=== PATIENT | male | born 1970 | race Caucasian/White ===

== ENCOUNTER 2020-05-02 14:52 | Emergency (ER) | payer OTHER, SELFPAY ==
[2020-05-02] VITALS (11 sets, daily range): BP systolic 109–180; BP diastolic 63–102; PULSE 60–74; RESP 10–23; O2SAT 89–100
[2020-05-02 15:53] LABS: Basophils Percent Auto 0.4 % (0.2-1.2); Eosinophils Absolute Auto 0.2 K/mm3 (0-0.3); Eosinophils Percent Auto 1.5 % (0-4.4); Hematocrit 42.8 % (42.0-52.0); Hemoglobin 14.5 g/dL (14.0-18.0); Immature Granulocyte Absolute 0.06 K/mm3 (0.00-0.031); Immature Granulocyte Percent A 0.6 % (0-0.5); Lymphocytes Absolute Auto 2.17 K/mm3 (0.9-3.2); Mean Corpuscular HGB Conc 33.9 g/dl (32-36); Mean Corpuscular Hemoglobin 29.7 pg (26-34); Mean Corpuscular Volume 87.7 fl (80-100); Mean Platelet Volume 10.4 fl (7.4-10.4); Monocytes Absolute Auto 0.9 K/mm3 (0.1-0.6); Monocytes Percent Auto 8.5 % (2.6-8.5); Platelet Count Result 268 k/mm3 (150-375); Red Blood Count 4.88 M/mm3 (4.6-6.20); Red Cell Distribution Width 13.4 % (11.5-14.5); White Blood Count 10.3 K/mm3 (4.5-10.0)
[2020-05-02 15:58] LABS: Alanine Aminotransferase 47 U/L (4-50); Albumin Level 4.3 g/dL (3.5-5.1); Alkaline Phosphatase 94 U/L (38-126); Anion Gap 7 mmol/L (8-16); Aspartate Amino Transferase 36 U/L (17-59); Bilirubin,Total 0.3 mg/dL (0.2-1.3); Blood Urea Nitrogen 19 mg/dL (9-20); Calcium 8.8 mg/dL (8.4-10.2); Carbon Dioxide 26 mmol/L (22-30); Chloride 104 mmol/L (98-107); Estimated CRCL calculation 95 ml/min; Estimated Glomerular Filt Rate > 60; Glucose 94 mg/dL (75-110); Lipase 142 U/L (23-300); Potassium 3.9 mmol/L (3.4-5.0); Sodium 137 mmol/L (137-145)
[2020-05-02] MEDS: BELLADONNA ALK/PHENOB ELIX 10 ML, MAG HYDROX/ALUMINUM HYD/SIMETH 30 ML, LIDOCAINE HCL 2... PO (15:58)
[2020-05-02] MEDS: PANTOPRAZOLE SODIUM IV 40 MG VIAL IV PUSH (15:59)
--- NOTE | 2020-05-02 16:29 | ED.ABDPAIN ---
HPI - Abdominal Pain General Chief Complaint: Abdominal Pain Stated Complaint: UPPER ABD PAIN Time Seen by Provider: 05/02/20 14:56 Source: patient Mode of arrival: ambulatory Limitations: no limitations History of Present Illness HPI narrative: Patient presents with chief complaint of epigastric discomfort that began a few hours prior to arrival after taking prednisone for a shoulder injury. Patient states that he began having burning and cramping-like sensations to his epigastric area accompanied by some nausea. Patient denies vomiting, diarrhea, fever, chills, cough, shortness of breath or chest pain. patient denies alcohol intake or previous episodes of pancreatitis, gallbladder disease, or epigastric issues. Patient reports that he is appendix has been removed many years ago. He denies any other concerns or complaints. Related Data Allergies Allergy/AdvReac Type Severity Reaction Status Date / Time No Known Allergies Allergy Verified 05/02/20 15:00 Review of Systems Review of Systems: Narrative: CONSTITUTIONAL: Denies fever, chills, or sweats. EYES: Denies visual changes, redness, or discharge. ENT: Denies rhinorrhea, congestion, sore throat, or otalgia. CARDIOVASCULAR: Denies chest pain, palpitations, or edema. RESPIRATORY: Denies cough or dyspnea. GASTROINTESTINAL: Reports abdominal pain, denies nausea, vomiting, or diarrhea. GENITOURINARY: Denies dysuria or hematuria. SKIN: Denies rash or itching. MUSCULOSKELETAL: Denies back pain, myalgia, or joint pain NEUROLOGIC: Denies headache, numbness, dizziness, or weakness. PSYCHIATRIC: Denies anxiety or depression. [facility] Family History Family History (Updated 03/08/16 @ 23:19 by DOCTOR UNKNOWN) Mother Family history of diabetes mellitus in first degree relative Social History Social History Smoking status: Former smoker Alcohol intake: never Gender identity (if verbalized by the patient): Male Exam Narrative: Exam Narrative: GENERAL: Well-appearing, well-nourished. HEAD: Normocephalic, atraumatic. EYES: PERRLA and EOMI. ENT: Nares clear, no rhinorrhea or epistaxis. Mucous membranes moist. NECK: Supple. No adenopathy or masses. No vertebral tenderness or loss of ROM. CHEST: Clear to auscultation. No respiratory distress. No wheezes rales or rhonchi HEART: Regular rate and rhythm. Normal peripheral pulses. ABDOMEN: Soft, mildly tender epigastrically with deep palpation, nondistended, normal active bowel sounds. No bruises noted. EXTREMITIES: No acute changes in ROM. No edema. SKIN: Warm, dry, no rash. NEURO: No focal deficits. Alert and oriented x3. PSYCH: Normal mood and affect. Course Vital Signs Vital signs: Vital Signs Pulse Rate 60 05/02/20 14:54 Respiratory Rate 16 05/02/20 14:54 Blood Pressure 180/93 H 05/02/20 14:54 Pulse Oximetry 99 05/02/20 14:54 Pulse Rate 60 05/02/20 14:54 Respiratory Rate 16 05/02/20 14:54 Blood Pressure 180/93 H 05/02/20 14:54 Pulse Oximetry 99 05/02/20 14:54 MDM - Abdominal Pain MDM Narrative Medical decision making narrative: Patient reports full resolution in his symptoms with Protonix and GI cocktail. Patient's labs and vitals are stable. Patient instructed to take prednisone with food to help coat his stomach. Patient will be prescribed omeprazole for a few days. Patient instructed to follow-up with his provider to discuss if prednisone continues to discuss alternative treatment if it continues to irritate his stomach. Differential Diagnosis Differential diagnosis: Likely abdominal pain, acute appendicitis, diverticulitis, gastroenteritis, pancreatitis and small bowel obstruction Lab Data Result diagrams: 05/02/20 15:33 05/02/20 15:33 Labs: Lab Results 05/02/20 05/02/20 Range/Units 15:33 15:33 WBC 10.3 H (4.5-10.0) K/mm3 RBC 4.88 (4.6-6.20) M/mm3 Hgb 14.5 (14.0-18.0) g/dL Hct 42.8 (42.0-52.0) % MCV 87.7 (80-1
--- NOTE | 2020-05-02 16:30 | PC.NURSE ---
pt denies any pain. states gi cocktail worked amazing
== END 2020-05-02 17:02 | disposition home or self-care (01) ==
PROVIDERS: Physician Assistant; Emergency Provider Emergency Medicine
DX: R10.13 Epigastric pain (principal); Z87.891 Personal history of nicotine dependence
CPT/HCPCS: 36415; 80053; 83690; 85025; 96374; 99284; A9270; C9113

== ENCOUNTER 2020-05-13 23:52 | Inpatient (IN) | payer OTHER, SELFPAY ==
--- NOTE | ~2020-05-13 | CT_ITS ---
EXAMINATION: CT abdomen pelvis w con EXAM DATE: 05/14/2020 00:52 INDICATION: Upper abdominal pain. TECHNIQUE: Spiral CT of the abdomen and pelvis was performed following intravenous injection of 100 m L Omnipaque 350. Axial, coronal and sagittal images were reviewed. The dose-length product (DLP) fo r this examination was 764.88 mGy-cm. The exposure was tailored according to patient size (auto mA e xposure control), and iterative reconstruction (ASIR) was used as additional dose reduction technique . There is no prior study for comparison. FINDINGS: The liver, spleen, adrenal glands and pancreas are unremarkable. Gallbladder is moderately distended with indistinct wall, appearance is suspicious for acute cholecystitis. No calcified galls tones but please note that approximately 30% of gallstones are noncalcified. Portal and splenic vein s are patent. Kidneys enhance symmetrically. There is no hydronephrosis. The prostate is unremark able. The bladder is unremarkable. There is no retroperitoneal or pelvic lymphadenopathy. There i s mild scattered arteriosclerotic disease. Small umbilical fat-containing hernia. Small bilateral ing uinal fat-containing hernias. The appendix is not positively visualized. There is no pericecal inflammatory change to suggest appe ndicitis. There is mild scattered colonic diverticulosis. There is no adjacent inflammatory change t o suggest diverticulitis. The stomach and small bowel are unremarkable. There is expected amount of colonic stool. No free intraperitoneal gas. The heart is normal in size. There are no pericardia l or pleural effusions. The lung bases are unremarkable. There are no osteoblastic or osteolytic le sions identified. IMPRESSION: 1. Findings consistent with acute cholecystitis. Reviewed, dictated and finalized at location A.
--- NOTE | ~2020-05-13 | US_ITS ---
EXAMINATION: US right upper quadrant DATE: 05/15/2020 08:56 INDICATION: Acute cholecystitis on prior CT. TECHNIQUE: Multiple grayscale and Doppler ultrasound images of the abdomen were obtained. COMPARISON: CT dated 05/14/2020 FINDINGS: Visualized portion of the body of the pancreas is normal. The head and tail are nonvisualized. Liver has normal echogenicity and contour, with a smooth surface. No liver lesion identified. No intrahepat ic biliary duct dilation suspected. Portal venous flow was seen in the hepatopetal, normal direction and has normal Doppler waveform. Sludge and shadowing gallstones are present within the gallbladder w hich is dilated with wall thickening. Sonographic Mckeon sign was reported as positive by the sonogra pher.The common bile duct is dilated to 8-9 mm which appears new since the prior CT. The distal commo n bile duct is obscured. The visualized proximal inferior vena cava is normal. Visualized portion of the right kidney demonstrates normal echogenicity and no hydronephrosis. IMPRESSION: 1. Cholelithiasis and acute cholecystitis. 2. Common bile duct dilated to 8-9 mm which appears new since the prior CT. Reviewed, dictated and finalized at location A.
[2020-05-14] VITALS (8 sets, daily range): BP systolic 128–180; BP diastolic 77–114; PULSE 52–93; RESP 16–23; TEMP 36.1–37.7; O2SAT 94–100; BMI 26.9
--- NOTE | 2020-05-14 00:04 | ED.ABDPAIN ---
HPI - Abdominal Pain General Chief Complaint: Abdominal Pain Stated Complaint: abd pain, n/v Time Seen by Provider: 05/13/20 23:56 Source: patient Mode of arrival: ambulatory Limitations: no limitations History of Present Illness HPI narrative: This patient is a 50 year old male who presents for evaluation of epigastric abdominal pain. He states he developed similar pain 2 weeks ago. He came to the ER for evaluation and it was thought to be due to taking medication with out eating. He was taken off the medication and started on a PPI for 7 days. He states his pain resolved but it return the morning. He states this morning his pain was mild but it has gradually worsened throughout the day. Tonight he developed nausea and vomiting. He describes the pain as if his stomach will explode. He reports a normal bowel movement today. Related Data Home Medications Medication Instructions Recorded Confirmed nabumetone 500 mg PO Q12H 05/14/20 05/14/20 tizanidine 8 mg PO HS 05/14/20 05/14/20 Allergies Allergy/AdvReac Type Severity Reaction Status Date / Time No Known Allergies Allergy Verified 05/02/20 15:00 Review of Systems Review of Systems: All systems reviewed & are unremarkable except as noted in HPI and below Constitutional: Constitutional: Denies chills and Denies fever(s) Gastrointestinal: Gastrointestinal: Reports abdominal pain, Denies diarrhea, Reports nausea and Reports vomiting PMFSH Past Medical History Medical History (Updated 05/14/20 @ 02:19 by Martha Bourgeois MD) Patient denies medical problems Surgical History Surgical History (Updated 05/14/20 @ 00:06 by Martha Bourgeois MD) Hx of appendectomy Social History Social History Smoking status: Current every day smoker Tobacco type: cigars Additional smoking assessment comments: 1 cigar a day Alcohol intake: never Substance use: unknown Substance use type: does not use Gender identity (if verbalized by the patient): Male Spiritual care concerns: No Exam Const: General: alert Orientation/consciousness: patient oriented x3 HENMT: Face and sinus: face symmetric Throat: posterior oropharynx normal Eyes: EOM: EOMs intact bilaterally Chest: Chest palpation & inspection: normal inspection of the chest Resp: Effort & Inspection: normal respiratory effort and no retractions Auscultation: clear to auscultation bilaterally Cardio: Rate: regular rate Rhythm: regular rhythm Heart sounds: no murmurs GI: GI Palp: Yes Soft to palpation, Yes Tenderness to palpation present (GI) (epigastric), No Guarding due to palpation present (GI), No Rigid due to palpation and No Hernia present Skin: General skin exam: normal color Rashes: no rashes Neuro: General: patient oriented x3 and moves all extremities Psych: Mental Status: mental status grossly normal Affect: normal affect Course Reevaluation(s) Reevaluation #1: Patient initially had improvement of pain with GI cocktail. He reports severe pain again so he was given Dilaudid. I have discussed that his pain appears due to cholecystitis. Date: 05/14/20 Time: 01:51 Consultations Consultation #1: I have discussed case with DR. Singh who accepts patient to his service with antibiotics, IVF and pain medication. Date: 05/14/20 Time: 02:18 Vital Signs Vital signs: Vital Signs Temperature 97.1 F L 05/14/20 00:16 Pulse Rate 60 05/14/20 00:16 Respiratory Rate 16 05/14/20 00:16 Blood Pressure 166/114 H 05/14/20 00:16 Pulse Oximetry 98 05/14/20 00:16 Temperature 97 F L 05/14/20 03:48 Pulse Rate 65 05/14/20 03:48 Respiratory Rate 20 05/14/20 03:48 Blood Pressure 153/83 H 05/14/20 03:48 Pulse Oximetry 97 05/14/20 03:48 MDM - Abdominal Pain Lab Data Attestation: I reviewed the patient's lab results. Result diagrams: 05/14/20 00:09 05/14/20 00:09 Labs: Lab Results 05/14/20 05/14/20 05/14/20 Range/Units
[2020-05-14 00:15] LABS: Basophils Absolute Auto 0.1 K/mm3 (0.0-0.1); Basophils Percent Auto 0.4 % (0.2-1.2); Eosinophils Absolute Auto 0.4 K/mm3 (0-0.3); Eosinophils Percent Auto 2.6 % (0-4.4); Hematocrit 41.8 % (42.0-52.0); Hemoglobin 14.5 g/dL (14.0-18.0); Immature Granulocyte Absolute 0.05 K/mm3 (0.00-0.031); Immature Granulocyte Percent A 0.4 % (0-0.5); Lymphocytes Absolute Auto 2.45 K/mm3 (0.9-3.2); Lymphocytes Percent Auto 17.3 % (18.3-44.2); Mean Corpuscular HGB Conc 34.7 g/dl (32-36); Mean Corpuscular Hemoglobin 29.8 pg (26-34); Mean Platelet Volume 10.5 fl (7.4-10.4); Monocytes Percent Auto 7.1 % (2.6-8.5); Neutrophils Absolute Auto 10.3 K/mm3 (1.3-6.7); Neutrophils Percent Auto 72.2 % (45.5-73.1); Platelet Count Result 282 k/mm3 (150-375); Red Blood Count 4.86 M/mm3 (4.6-6.20); Red Cell Distribution Width 13.4 % (11.5-14.5); White Blood Count 14.2 K/mm3 (4.5-10.0)
[2020-05-14] MEDS: ONDANSETRON INJ 4 MG/2 ML VIAL IV PUSH ×3 (00:24→16:28)
[2020-05-14] MEDS: PANTOPRAZOLE SODIUM IV 40 MG VIAL IV PUSH (00:24)
[2020-05-14] MEDS: BELLADONNA ALK/PHENOB ELIX 10 ML, MAG HYDROX/ALUMINUM HYD/SIMETH 30 ML, LIDOCAINE HCL 2... PO (00:24)
[2020-05-14 00:29] LABS: Alanine Aminotransferase 30 U/L (4-50); Albumin Level 4.1 g/dL (3.5-5.1); Alkaline Phosphatase 126 U/L (38-126); Anion Gap 9 mmol/L (8-16); Aspartate Amino Transferase 17 U/L (17-59); Bilirubin,Total 0.4 mg/dL (0.2-1.3); Blood Urea Nitrogen 15 mg/dL (9-20); Calcium 9.4 mg/dL (8.4-10.2); Carbon Dioxide 27 mmol/L (22-30); Chloride 104 mmol/L (98-107); Estimated CRCL calculation 94 ml/min; Estimated Glomerular Filt Rate > 60; Glucose 135 mg/dL (75-110); Lipase 119 U/L (23-300); Potassium 3.5 mmol/L (3.4-5.0); Sodium 140 mmol/L (137-145)
[2020-05-14] MEDS: HYDROmorphone HCL INJ (*CRX) 1 MG/ML SYR IV PUSH (01:43)
[2020-05-14 01:59] LABS: Add Urine Microscopic? NO; Appearance Urine Clear (Clear); Bilirubin Urine Negative (Negative); Blood Urine Negative (Negative); Color Urine Yellow (Yellow); Glucose Urine UA Negative (Negative); Ketones Urine Negative (Negative); Leukocyte Esterase Ur Negative LEU/UL (Negative); Nitrate Urine Negative (Negative); Protein Urine Negative (Negative); Urobilinogen Urine Negative mg/dL (<2.0)
[2020-05-14 02:13] LABS: Specific Grav Ur > 1.060 (1.001-1.035)
--- NOTE | 2020-05-14 03:31 | ADMGEN ---
This patient, Nathan Avila, was admitted to 2 Medical Room 260-01 at 0325. Patient/family oriented to hospital policies and general routines including ID bracelet, bed and alarms, visiting hours, pain management, procedures, bathroom and other care routines, personal items, smoking policy, room service/diet, and visiting hours. Valuables list has been completed. Information on how to activate the Rapid Response Team has been discussed. Patient/Family are encouraged to report perceived risks to care and to ask questions if they do not understand what they are told or what they should do.
[2020-05-14] MEDS: SODIUM CHLORIDE 0.9% IV 1,000 ML 125 ML IV CONT (03:45)
[2020-05-14] MEDS: HYDROmorphone HCL INJ (*CRX) 1 MG/ML SYR 0.5 MG IV PUSH ×2 (06:36→10:46)
[2020-05-14] MEDS: MORPHINE SULFATE (*CRX) 4 MG/ML INJ IV PUSH ×4 (11:30→20:43)
--- NOTE | 2020-05-14 12:32 | PM.IMHP ---
H&P: HPI History of Present Illness Date/Time: 05/14/20 12:32 Chief complaint: Acute Cholecystitis Narrative: Nathan Avila is a 50 year old male Patient reports that about 2 weeks ago he had symptoms similar to this that was felt to be a complication of a steroid therapy. This was treated but the pain never really went away. The pain is in the epigastric area and goes like a band around the upper abdomen. Last night about 8 or 9:00 a.m. the pain got worse. By it was extremely severe. He reports having eaten chicken legs, macaroni and cheese and rice for dinner. He came to the emergency room where he was noted to be very uncomfortable with upper abdominal pain. He was tender in the epigastric [place] [id number] scan of the abdomen and pelvis was done and was suspicious for cholecystitis. No stones were seen but but acute cholecystitis was suspected. He has been admitted now and started on IV Zosyn antibiotics. He reports he has been taking analgesics but still is having a lot of epigastric abdominal pain as described above. He has never had pain like this before 2 weeks ago. It was never as bad as it was starting last night. He has no family history of gallbladder disease. 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 He also has a history of chronic sinusitis and chronic daily headaches. He has seen a neurologist at [facility] for this at least a couple of times. Review of Systems Review of Systems: All systems reviewed & are unremarkable except as noted in HPI and below ( HPI and those items noted below) ENT: Reports other ( chronic sinusitis, headaches) Neurologic: Reports headache(s) ( chronic headaches of unclear etiology) [facility] Past Medical History Medical History Patient denies medical problems Surgical History Surgical History Hx of appendectomy Family History Family History Mother Family history of diabetes mellitus in first degree relative Social History Social History Smoking status: Current every day smoker Tobacco type: cigars Additional smoking assessment comments: 1 cigar a day Alcohol intake: never Substance use: unknown Substance use type: does not use Living arrangements: with family Occupation/Education: occupation 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 Gender identity (if verbalized by the patient): Male Sexual Orientation (if Verbalized by the Patient): Straight or Heterosexual Spiritual care concerns: No Meds Home Medications and Allergies Home Medications Medication Instructions Recorded Confirmed Type nabumetone 500 mg PO Q12H 05/14/20 05/14/20 History tizanidine 8 mg PO HS 05/14/20 05/14/20 History Allergies Allergy/AdvReac Type Severity Reaction Status Date / Time No Known Allergies Allergy Verified 05/02/20 15:00 Vital Signs Vital Signs - 24 hr 05/14/20 00:16 05/14/20 00:56 05/14/20 02:01 Temperature 36.2 C L 36.6 C Pulse Rate 60 57 L 57 L Respiratory Rate 16 18 23 H Blood Pressure 166/114 H 180/95 H 146/98 H Pulse Oximetry 98 100 100 05/14/20 02:31 05/14/20 03:48 Temperature 36.1 C L Pulse Rate 52 L 65 Respiratory Rate 22 H 20 Blood Pressure 156/95 H 153/83 H Pulse Oximetry 99 97 Exam Const: General: cooperative, healthy appearing, no acute distress, alert, awake, anxious and uncomfortable ( due to epigastric abdominal pain); No confusion Nutritional Appearance: average body habitus and well nourished Orientation/consciousness: patient oriented x3 and No confusion Limitations: no limitations HENMT: Head: normocephalic, atraumatic, no contusi
[2020-05-14] MEDS: IBUPROFEN IV 800 MG/200 ML 800 MG/200 ML BAG 400 MG IVPB ×2 (13:18→19:38)
[2020-05-14] MEDS: KCL 40 MEQ/D5/0.9% SOD CHL 1,000 ML 80 ML IV CONT (14:08)
[2020-05-14] MEDS: ENOXAPARIN 30 MG/0.3 ML SYRINGE SUB-Q ×2 (14:09→20:48)
[2020-05-14] MEDS: TIZANIDINE HCL 4 MG TABLET 8 MG PO (20:48)
[2020-05-15] VITALS (10 sets, daily range): BP systolic 100–127; BP diastolic 60–81; PULSE 74–101; RESP 18–20; TEMP 36.6–37.2; O2SAT 94–98
[2020-05-15] MEDS: MORPHINE SULFATE (*CRX) 4 MG/ML INJ IV PUSH ×3 (00:34→10:01)
[2020-05-15] MEDS: IBUPROFEN IV 800 MG/200 ML 800 MG/200 ML BAG 400 MG IVPB ×2 (00:42→06:13)
[2020-05-15] MEDS: KCL 40 MEQ/D5/0.9% SOD CHL 1,000 ML 80 ML IV CONT (04:54)
[2020-05-15 05:33] LABS: Basophils Percent Auto 0.2 % (0.2-1.2); Eosinophils Absolute Auto 0.1 K/mm3 (0-0.3); Eosinophils Percent Auto 0.3 % (0-4.4); Hematocrit 39.1 % (42.0-52.0); Hemoglobin 13.5 g/dL (14.0-18.0); Immature Granulocyte Absolute 0.24 K/mm3 (0.00-0.031); Immature Granulocyte Percent A 1.2 % (0-0.5); Lymphocytes Absolute Auto 1.08 K/mm3 (0.9-3.2); Lymphocytes Percent Auto 5.3 % (18.3-44.2); Mean Corpuscular HGB Conc 34.5 g/dl (32-36); Mean Corpuscular Hemoglobin 29.3 pg (26-34); Mean Platelet Volume 10.3 fl (7.4-10.4); Monocytes Absolute Auto 1.7 K/mm3 (0.1-0.6); Monocytes Percent Auto 8.3 % (2.6-8.5); Neutrophils Absolute Auto 17.4 K/mm3 (1.3-6.7); Neutrophils Percent Auto 84.7 % (45.5-73.1); Platelet Count Result 253 k/mm3 (150-375); Red Cell Distribution Width 13.6 % (11.5-14.5); White Blood Count 20.5 K/mm3 (4.5-10.0)
[2020-05-15 05:59] LABS: Alanine Aminotransferase 28 U/L (4-50); Albumin Level 3.4 g/dL (3.5-5.1); Alkaline Phosphatase 97 U/L (38-126); Anion Gap 8 mmol/L (8-16); Aspartate Amino Transferase 21 U/L (17-59); Bilirubin,Total 1.1 mg/dL (0.2-1.3); Blood Urea Nitrogen 10 mg/dL (9-20); Calcium 8.3 mg/dL (8.4-10.2); Carbon Dioxide 26 mmol/L (22-30); Chloride 103 mmol/L (98-107); Estimated CRCL calculation 93 ml/min; Estimated Glomerular Filt Rate > 60; Glucose 139 mg/dL (75-110); Potassium 3.8 mmol/L (3.4-5.0); Sodium 137 mmol/L (137-145)
--- NOTE | 2020-05-15 07:15 | PM.PNGS ---
Progress Note: A&P Assessment and Plan (1) Acute cholecystitis: Code(s): K81.0 - Acute cholecystitis Status: Acute Assessment and Plan: persistent severe epigastric and right upper quadrant abdominal pain. Will get ultrasound stat this morning to evaluate for gallstones. Plan to proceed with laparoscopic cholecystectomy this afternoon. I discussed the procedure the risks the benefits with the patient. All questions were answered. He understands and agrees to go ahead. (2) Chronic headaches: Code(s): R51.9 - Headache, unspecified; G89.29 - Other chronic pain Status: Chronic Subjective Subjective Date/Time Seen: 05/15/20 07:15 Patient reports: still having pain ( pain meds help but pain has never really gone away and recurs severely if pain meds are late.), no bowel movement and afebrile Review of Systems Review of Systems: All systems reviewed & are unremarkable except as noted in HPI and below Constitutional: Constitutional: Reports as per HPI, Denies chills, Reports difficulty sleeping, Denies fever(s), Denies headache(s) and Reports poor appetite Cardiovascular: Cardiovascular: Denies chest pain and Denies dyspnea Respiratory: Respiratory: Denies cough and Denies dyspnea Gastrointestinal: Gastrointestinal: Reports as per HPI, Reports abdominal pain, Denies nausea and Denies vomiting Neurologic: Denies confusion and Denies headache(s) Exam Const: General: cooperative, comfortable ( More comfortable this morning), no acute distress, alert and awake; No confusion Nutritional Appearance: overweight Orientation/consciousness: patient oriented x3 and No confusion GI: Inspection: normal to inspection and visible herniation ( umbilical as before) GI Palp: Yes Soft to palpation, Yes Tenderness to palpation present (GI) ( remains very tender right upper quadrant), Yes Guarding due to palpation present (GI), Yes Hernia present ( reducible umbilical) and No Rebound tenderness present Auscultation: Hypoactive bowel sounds present Neuro: General: patient oriented x3, no focal motor deficits and No confusion Extrem: General: no calf tenderness and no edema Psych: Affect: normal affect Insight: Good insight present (Psych) Judgement: Good judgement present (Psych) Objective Data Vital Signs Vital Signs: Vital Signs - 24 hr 05/14/20 14:00 05/14/20 16:58 05/14/20 22:00 Temperature 37.7 C H 36.8 C 36.2 C L Pulse Rate 93 82 Respiratory Rate 18 18 Blood Pressure 129/77 128/79 Pulse Oximetry 94 96 05/15/20 06:00 Temperature 36.6 C Pulse Rate 98 Respiratory Rate 18 Blood Pressure 107/70 Pulse Oximetry 96 Intake/Output Intake/Output: Intake & Output 05/12/20 05/13/20 05/14/20 05/15/20 23:59 23:59 23:59 23:59 Intake Total 2060 1500 Output Total 675 450 Balance 1385 1050 Meds/Results Medications: Active Medications Generic Name Dose Route Start Last Admin Trade Name Freq PRN Reason Stop Dose Admin Acetaminophen 1,000 mg 05/14/20 12:22 Tylenol Tablet PO Q6H PRN Mild Pain (1-3) or Fever Enoxaparin Sodium 30 mg 05/14/20 21:00 05/14/20 20:48 Lovenox SUB-Q 30 mg Q12HR MAGGI Administration Piperacillin/Tazobactam/Dextrose 3.375 gm in 50 mls @ 100 mls/hr 05/14/20 07:15 05/15/20 06:05 Zosyn 3.375 Gm/D5w 50ml Pm IVPB Infused Q6HR MAGGI Infusion Ibuprofen 800 mg in 200 mls @ 400 mls/hr 05/14/20 19:00 05/15/20 06:43 Caldolor 800 Mg/200 Ml IVPB Infused Q6H MAGGI Infusion Potassium Chloride/Dextrose/Sod Cl 1,000 mls @ 80 mls/hr 05/14/20 12:30 05/15/20 04:54 Kcl 40 Meq/D5ns IV CONT 80 mls/hr .[id number] MAGGI Administration Morphine Sulfate 2 mg 05/14/20 12:17 Morphine Sulfate Inj (*Crx) IV PUSH Q2H PRN Pain Rated 4-6 Morphine Sulfate 4 mg 05/14/20 12:17 05/15/20 04:46 Morphine Sulfate Inj (*Crx) IV PUSH 4 mg Q2H PRN Administration Pain Rated 7-10 Naloxone HCl 0.1 mg 05/14/20 12
--- NOTE | 2020-05-15 07:20 | WPDHPUPDATE1 ---
History and Physical Update Update Date/Time: 05/15/20 07:20 History and Physical has been reviewed, including an updated exam of the patient. There are NO changes in the patient's condition. Risks, benefits, and alternatives have been discussed and questions answered. Patient agrees to proceed with procedure.
[2020-05-15] MEDS: PANTOPRAZOLE SODIUM IV 40 MG VIAL IV PUSH (10:00)
[2020-05-15] MEDS: CHLORHEXIDINE GLUCONATE 4% SOL 120 ML BTL 1 APPLIC TOPICAL (11:57)
[2020-05-15] MEDS: LACTATED RINGERS 1,000 ML 30 ML IV CONT ×2 (13:20→17:17)
--- NOTE | 2020-05-15 13:55 | WPDANESEPP ---
Anes - Eval Pre Procedure Procedure: Operation Date: 05/15/20 14:15 Proposed Procedures p Laparoscopic Cholecystectomy - Santo Singh MD Date/Time: 05/15/20 13:55 Pre Op Diagnosis: Acute Cholecystitis Patient Data Age: 50 Gender: M Height: 1.8 m Weight: 87.6 kg Last Vital Signs Temp 36.8 C 05/15/20 08:00 Pulse 90 05/15/20 08:00 Resp 18 05/15/20 08:00 BP 126/71 05/15/20 08:00 Pulse Ox 94 05/15/20 08:00 Allergies Allergy/AdvReac Type Severity Reaction Status Date / Time No Known Allergies Allergy Verified 05/02/20 15:00 Home Medications Medication Instructions Recorded Confirmed Type nabumetone 500 mg PO Q12H 05/14/20 05/14/20 History tizanidine 8 mg PO HS 05/14/20 05/14/20 History Laboratory Tests 05/15/20 05/15/20 05/15/20 05:16 05:16 07:42 WBC 20.5 K/mm3 H K/mm3 (4.5-10.0) RBC 4.60 M/mm3 M/mm3 (4.6-6.20) Hgb 13.5 g/dL L g/dL (14.0-18.0) Hct 39.1 % L % (42.0-52.0) MCV 85.0 fl fl (80-100) MCH 29.3 pg pg (26-34) MCHC 34.5 g/dl g/dl (32-36) RDW 13.6 % % (11.5-14.5) Plt Count 253 k/mm3 k/mm3 (150-375) MPV 10.3 fl fl (7.4-10.4) Immature Gran % (Auto) 1.2 % H % (0-0.5) Neut % (Auto) 84.7 % H % (45.5-73.1) Lymph % (Auto) 5.3 % L % (18.3-44.2) [place] % (Auto) 8.3 % % (2.6-8.5) Eos % (Auto) 0.3 % % (0-4.4) Baso % (Auto) 0.2 % % (0.2-1.2) Lymph # (Auto) 1.08 K/mm3 K/mm3 (0.9-3.2) [place] # (Auto) 1.7 K/mm3 H K/mm3 (0.1-0.6) Eos # (Auto) 0.1 K/mm3 K/mm3 (0-0.3) Baso # (Auto) 0.0 K/mm3 K/mm3 (0.0-0.1) Abs Immat Gran (auto) 0.24 K/mm3 H K/mm3 (0.00-0.031) Absolute Neuts (auto) 17.4 K/mm3 H K/mm3 (1.3-6.7) Absolute Nucleated RBC 0.0 K/mm3 K/mm3 (0.0-0.012) Nucleated RBC % 0.0 % % (0.0-0.2) Sodium 137 mmol/L mmol/L (137-145) Potassium 3.8 mmol/L mmol/L (3.4-5.0) Chloride 103 mmol/L mmol/L (98-107) Carbon Dioxide 26 mmol/L mmol/L (22-30) Anion Gap 8 mmol/L mmol/L (8-16) BUN 10 mg/dL D mg/dL (9-20) Creatinine 0.90 mg/dL mg/dL (0.7-1.3) Estim Creat Clear Calc 93 ml/min ml/min Estimated GFR > 60 (59 - ) Glucose 139 mg/dL H mg/dL (75-110) Calcium 8.3 mg/dL L mg/dL (8.4-10.2) Total Bilirubin 1.1 mg/dL mg/dL (0.2-1.3) AST 21 U/L U/L (17-59) ALT 28 U/L U/L (4-50) Alkaline Phosphatase 97 U/L U/L (38-126) Total Protein 6.0 g/dL L g/dL (6.3-8.2) Albumin 3.4 g/dL L g/dL (3.5-5.1) Blood Type B Positive Antibody Screen Negative Patient hx anesthesia problems: none Family hx anesthesia problems: none PMFSH Past Medical History Medical History (Updated 05/15/20 @ 13:55 by Alta Camacho CRNA) Overweight Patient denies medical problems Surgical History Surgical History Hx of appendectomy Family History Family History Mother Family history of diabetes mellitus in first degree relative Social History Social History Smoking status: Current every day smoker Tobacco type: cigars Additional smoking assessment comments: 1 cigar a day Alcohol intake: never Substance use: unknown Substance use type: does not use Living arrangements: with family Occupation/Education: occupation Additional occupation/education comments: [employer] currently out on workman's comp for right shoulder injury. Gender identity (if verbalized by the patient): Male Sexual Orientation (if Verbalized by the Patient): Straight or Heter
--- NOTE | 2020-05-15 14:46 | WPDANESEFPP ---
Anes - Eval Final PreProcedure Day of Procedure 05/15/20 14:46 Patient weight: overweight Heart: regular rate and rhythm Lungs: clear to auscultation Airway: Mallampati scale class II Neurological: alert and oriented Last oral intake: >/= 8 hours ASA classification: III Emergent: no Anesthetic plan: proceed Anesthesia type and monitoring: general ETT and standard monitoring Informed Consent: The patient's anesthetic plan and its attendant risks and benefits were discussed with the patient/family/POA. Questions were solicited and answers provided to the satisfaction of the patient/family/POA.
[2020-05-15] MEDS: BUPIVACAINE/EPINEPHRINE 0.5% 10 ML VIAL 20 ML INFILTRATE (16:10)
[2020-05-15] MEDS: HEMOSTATIC MATRIX (SURGIFLO with THROMBIN) KIT 1 KIT XX (16:42)
--- NOTE | 2020-05-15 17:53 | PM.PROC ---
Procedure Note - Detailed Date of procedure: 05/15/20 Pre-op diagnosis: Acute Cholecystitis Acute cholecystitis, cholelithiasis with cystic duct obstruction Post-op diagnosis: other (Gangrenous acute cholecystitis, cholelithiasis with cystic duct obstruction) Procedure performed: Laparoscopic cholecystectomy Description of procedure: The patient was taken to surgery and induced into general anesthesia. The abdomen was prepped and draped. Trocars were placed in the usual fashion using 0.5% Marcaine with epinephrine and applied Medical optical trocars. 5 mm camera was used. The gallbladder was surrounded by omental adhesions. These were taken down and a very gangrenous gallbladder was noted. Besides the patches of greenish gallbladder wall, there were also patches of erythematous gallbladder wall. The gallbladder may have been ruptured but it was difficult to tell that for sure. Once these adhesions were taken down, I then proceeded to decompress the gallbladder with a laparoscopic aspirator. Dark, thick bile was returned. The gallbladder decompressed well. We then retracted the gallbladder anterosuperiorly and freed the remaining adhesions to the infundibulum and distal gallbladder. Traction was placed on the infundibulum and dissection was started. The inflammation was very severe. Minimal cautery was used. Mostly blunt dissection and suction were used. Traction was placed on the infundibulum and the cholecysto hepatic triangle was exposed. Again using mostly blunt dissection, the cystic duct and cystic artery were exposed. Dissection of the gallbladder off the liver at its lower 3rd was carried out. On the lateral aspect of the gallbladder there was some tearing of the liver surface as it was densely adherent to the gallbladder. We got into a better plane on the medial side of the gallbladder and extended this over towards the lateral side. There was some bleeding associated with the liver from the dissection. Eventually the cystic duct and cystic artery were exposed. The gallbladder was dissected off the liver at its lower 3rd. Critical view was achieved. I securely clipped and divided the cystic duct and cystic artery. We then turned our attention to dissecting the gangrenous gallbladder off the liver. There was acute inflammation with plume and smoke making the dissection more difficult. Nonetheless, we dissected the gallbladder and freed it from its attachments to the gallbladder fossa. Some of the gallbladder was bluntly dissected off the liver as the plane between the gallbladder and the liver was obliterated. Eventually the gallbladder was entirely freed from the liver. We then placed the gallbladder in an Endo-Catch bag and retrieved it through the 10 11 epigastric trocar site. The trocar site had to be significantly enlarged to accommodate the gallbladder. The gallbladder had multiple stones and a very thickened wall. Once the gallbladder was removed, the epigastric trocar was replaced and we used a towel clip to occlude the skin so that re-insufflation could take place. We again inspected the gallbladder fossa. There was a lot of blood and clot in the gallbladder fossa as there was quite a bit of raw liver surface that was oozing. I suctioned this blood away and cleaned up the right lower quadrant. We used 10 cc of Surgiflo to achieve hemostasis of the gallbladder fossa. After the Surgiflo was placed, I held gentle pressure with a Ray geoffrey sponge. This worked well, the gallbladder surface looked hemostatic once the Ray geoffrey was removed. The gallbladder fossa was then irrigated and suctioned repeatedly. Some additional cautery was used on the gallbladder fossa. Hemostasis looked to be quite good. Nonetheless, with the gangrenous gallbladder and the raw liver surface, I did go ahead and place a 19 [place] drain in the right upper quadrant in the subhepatic space. The drain was sutured to the skin with 2 0 silk. We looked a final t
[2020-05-15] MEDS: TIZANIDINE HCL 4 MG TABLET 8 MG PO (21:13)
[2020-05-16] MEDS: KCL 40 MEQ/D5/0.9% SOD CHL 1,000 ML 80 ML IV CONT (01:47)
[2020-05-16 02:00] VITALS: TEMP 37
[2020-05-16 03:01] VITALS: BP 105/58; PULSE 82; RESP 20; TEMP 37; O2SAT 98
--- NOTE | 2020-05-16 05:16 | PC.NURSE ---
0400 CALLED INTO ROOM, RACHELLE DRAIN OPENED AND DRAINED ONTO BED. LINENS CHANGED
[2020-05-16 05:54] LABS: Basophils Percent Auto 0.1 % (0.2-1.2); Hematocrit 33.5 % (42.0-52.0); Hemoglobin 11.5 g/dL (14.0-18.0); Immature Granulocyte Absolute 0.16 K/mm3 (0.00-0.031); Lymphocytes Absolute Auto 0.68 K/mm3 (0.9-3.2); Lymphocytes Percent Auto 4.4 % (18.3-44.2); Mean Corpuscular HGB Conc 34.3 g/dl (32-36); Mean Corpuscular Hemoglobin 29.6 pg (26-34); Mean Corpuscular Volume 86.3 fl (80-100); Mean Platelet Volume 10.5 fl (7.4-10.4); Monocytes Absolute Auto 0.9 K/mm3 (0.1-0.6); Neutrophils Absolute Auto 13.7 K/mm3 (1.3-6.7); Neutrophils Percent Auto 88.5 % (45.5-73.1); Platelet Count Result 250 k/mm3 (150-375); Red Blood Count 3.88 M/mm3 (4.6-6.20); Red Cell Distribution Width 13.8 % (11.5-14.5); White Blood Count 15.5 K/mm3 (4.5-10.0)
[2020-05-16 06:00] VITALS: BP 112/74; PULSE 95; RESP 18; TEMP 37.2; O2SAT 96
[2020-05-16 06:06] LABS: Anion Gap 5 mmol/L (8-16); Blood Urea Nitrogen 12 mg/dL (9-20); Calcium 8.5 mg/dL (8.4-10.2); Carbon Dioxide 28 mmol/L (22-30); Chloride 103 mmol/L (98-107); Estimated CRCL calculation 93 ml/min; Estimated Glomerular Filt Rate > 60; Glucose 145 mg/dL (75-110); Sodium 136 mmol/L (137-145)
--- NOTE | 2020-05-16 07:42 | WPDANESPN ---
Anes - Prog Note Post-Op Date/Time: 05/16/20 07:42 Cardiovascular status: normal Respiratory status: normal Airway patency: baseline Mental status: baseline Post-Op hydration status: normal Vital Signs: Last Vital Signs Temp 37.2 C 05/16/20 06:00 Pulse 95 05/16/20 06:00 Resp 18 05/16/20 06:00 BP 112/74 05/16/20 06:00 Pulse Ox 96 05/16/20 06:00 Pain Score (VAS): 2 I/O: Intake & Output 05/15/20 05/15/20 05/16/20 15:59 23:59 07:59 Intake Total 50 1670 750 Output Total 10 800 Balance 50 1660 -50 Laboratory Tests 05/16/20 05:21 05/16/20 05:21 05/15/20 05/16/20 05/16/20 07:42 05:21 05:21 WBC 15.5 H RBC 3.88 L Hgb 11.5 L Hct 33.5 L MCV 86.3 MCH 29.6 MCHC 34.3 RDW 13.8 Plt Count 250 MPV 10.5 H Immature Gran % (Auto) 1.0 H Neut % (Auto) 88.5 H Lymph % (Auto) 4.4 L [place] % (Auto) 6.0 Eos % (Auto) 0.0 Baso % (Auto) 0.1 L Lymph # (Auto) 0.68 L [place] # (Auto) 0.9 H Eos # (Auto) 0.0 Baso # (Auto) 0.0 Abs Immat Gran (auto) 0.16 H Absolute Neuts (auto) 13.7 H Absolute Nucleated RBC 0.0 Nucleated RBC % 0.0 Sodium 136 L Potassium 4.0 Chloride 103 Carbon Dioxide 28 Anion Gap 5 L BUN 12 Creatinine 0.90 Estim Creat Clear Calc 93 Estimated GFR > 60 Glucose 145 H Calcium 8.5 Blood Type B Positive Antibody Screen Negative Post-procedural complaints: none Patient Feedback: Patient satisfied with anesthetic care.
[2020-05-16] MEDS: PANTOPRAZOLE SODIUM IV 40 MG VIAL IV PUSH (08:04)
[2020-05-16] MEDS: ENOXAPARIN 40 MG/0.4 ML SYRINGE SUB-Q (08:04)
[2020-05-16] MEDS: HYDROcodone/acetaminophen (*CRX) 5-325 MG TABLET 1 TAB PO ×4 (08:05→22:12)
--- NOTE | 2020-05-16 09:22 | PM.PNGS ---
Progress Note: A&P Assessment and Plan (1) Acute gangrenous cholecystitis: Code(s): K81.0 - Acute cholecystitis Status: Acute Assessment and Plan: doing well postop day 1. No bile from RACHELLE drain. Patient is a little anemic after surgery but not substantially so. Will advance diet and ambulate. Continue IV antibiotics. Start to teach patient how to manage drain at home as he will be discharged with the RACHELLE drain in place. Subjective Subjective Date/Time Seen: 05/16/20 09:22 Post Op day: 1 Patient reports: feels better, pain is less, voiding w/o difficulty and afebrile Exam GI: Inspection: non-distended and incision ( healing well serosanguineous fluid from RACHELLE drain) GI Palp: Yes abdominal tenderness, Yes Soft to palpation and Yes Tenderness to palpation present (GI) Auscultation: normal bowel sounds Objective Data Vital Signs Vital Signs: Vital Signs - 24 hr 05/15/20 13:20 05/15/20 17:17 05/15/20 17:30 Temperature 37.2 C 36.6 C Pulse Rate 101 H 100 95 Respiratory Rate 20 18 18 Blood Pressure 127/77 113/81 121/81 Pulse Oximetry 94 95 96 05/15/20 17:45 05/15/20 18:00 05/15/20 18:15 Temperature Pulse Rate 100 91 83 Respiratory Rate 18 19 19 Blood Pressure 124/80 100/60 124/78 Pulse Oximetry 98 95 96 05/15/20 18:25 05/15/20 22:00 05/16/20 02:00 Temperature 37.0 C 36.7 C 37.0 C Pulse Rate 80 74 Respiratory Rate 18 20 Blood Pressure 116/74 110/70 Pulse Oximetry 94 98 05/16/20 03:01 05/16/20 06:00 Temperature 37.0 C 37.2 C Pulse Rate 82 95 Respiratory Rate 20 18 Blood Pressure 105/58 L 112/74 Pulse Oximetry 98 96 Intake/Output Intake/Output: Intake & Output 05/13/20 05/14/20 05/15/20 05/16/20 23:59 23:59 23:59 23:59 Intake Total 2060 3220 916 Output Total 675 460 830 Balance 1385 7090 86 Meds/Results Medications: Active Medications Generic Name Dose Route Start Last Admin Trade Name Freq PRN Reason Stop Dose Admin Acetaminophen 500 mg 05/15/20 18:16 Tylenol Tablet PO Q6H PRN Mild Pain (1-3) or Fever Hydrocodone Bitart/Acetaminophen 1 tab 05/15/20 18:16 05/16/20 08:05 Gonzales 5-325 Mg PO 1 tab Q4H PRN Administration Pain Rated 4-6 Hydrocodone Bitart/Acetaminophen 1 tab 05/15/20 18:16 Gonzales 10-325 Mg PO Q4H PRN Pain Rated 7-10 Enoxaparin Sodium 40 mg 05/16/20 09:00 05/16/20 08:04 Lovenox SUB-Q 40 mg DAILY MAGGI Administration Piperacillin/Tazobactam/Dextrose 3.375 gm in 50 mls @ 100 mls/hr 05/14/20 07:15 05/16/20 06:31 Zosyn 3.375 Gm/D5w 50ml Pm IVPB Infused Q6HR MAGGI Infusion Morphine Sulfate 2 mg 05/15/20 18:16 Morphine Sulfate Inj (*Crx) IV PUSH Q2H PRN Pain Rated 4-6 Naloxone HCl 0.1 mg 05/14/20 12:22 Narcan IV PUSH Q2M PRN Opiate Reversal Ondansetron HCl 4 mg 05/14/20 02:05 05/14/20 16:28 Zofran Inj IV PUSH 4 mg Q4H PRN Administration Nausea Pantoprazole Sodium 40 mg 05/17/20 09:00 Protonix PO QAM MAGGI Tizanidine HCl 8 mg 05/14/20 21:00 05/15/20 21:13 Zanaflex PO 8 mg HS MAGGI Administration Radiology Results: ITS Impressions Abdomen/Pelvis CT 05/14/20 10:15 IMPRESSION: 1. Findings consistent with acute cholecystitis. Upper Quadrant Ultrasound 05/15/20 09:03 IMPRESSION: 1. Cholelithiasis and acute cholecystitis. 2. Common bile duct dilated to 8-9 mm which appears new since the prior CT. Labs Labs: Laboratory Results - last 24 hr 05/16/20 05/16/20 05:21 05:21 WBC 15.5 H RBC 3.88 L Hgb 11.5 L Hct 33.5 L MCV 86.3 MCH 29.6 MCHC 34.3 RDW 13.8 Plt Count 250 MPV 10.5 H Immature Gran % (Auto) 1.0 H Neut % (Auto) 88.5 H Lymph % (Auto) 4.4 L [place] % (Auto) 6.0 Eos % (Auto) 0.0 Baso % (Auto) 0.1 L Lymph # (Auto) 0.68 L [place] # (Auto) 0.9 H Eos # (Auto) 0.0 Baso # (Auto) 0.0 Abs Immat Gran (auto) 0.16 H Absolute Neuts (a
[2020-05-16 10:47] VITALS: BP 108/71; PULSE 92; RESP 20; TEMP 36.9; O2SAT 95
[2020-05-16 14:00] VITALS: BP 138/74; PULSE 86; RESP 20; TEMP 36.5; O2SAT 93
--- NOTE | 2020-05-16 15:43 | PC.NURSE ---
Discussed RACHELLE drain with patient - emptying drain and reactivating suction - along with measuring output.
[2020-05-16] MEDS: TIZANIDINE HCL 4 MG TABLET 8 MG PO (20:35)
[2020-05-16 22:00] VITALS: BP 119/72; PULSE 82; RESP 20; TEMP 36.7; O2SAT 94
[2020-05-17 05:59] VITALS: BP 125/89; PULSE 89; RESP 16; TEMP 36.9; O2SAT 95
[2020-05-17 06:32] LABS: Hemoglobin 11.3 g/dL (14.0-18.0); Mean Corpuscular HGB Conc 33.2 g/dl (32-36); Mean Corpuscular Hemoglobin 29.5 pg (26-34); Mean Corpuscular Volume 88.8 fl (80-100); Platelet Count Result 293 k/mm3 (150-375); Red Blood Count 3.83 M/mm3 (4.6-6.20); Red Cell Distribution Width 13.9 % (11.5-14.5); White Blood Count 9.3 K/mm3 (4.5-10.0)
[2020-05-17 07:17] LABS: Anion Gap 8 mmol/L (8-16); Blood Urea Nitrogen 15 mg/dL (9-20); Calcium 8.5 mg/dL (8.4-10.2); Carbon Dioxide 27 mmol/L (22-30); Chloride 102 mmol/L (98-107); Estimated CRCL calculation 84 ml/min; Estimated Glomerular Filt Rate > 60; Glucose 108 mg/dL (75-110); Potassium 3.6 mmol/L (3.4-5.0); Sodium 137 mmol/L (137-145)
--- NOTE | 2020-05-17 07:32 | PM.DS ---
DS: Admitting Diagnosis Admitting Diagnosis Admitting Diagnosis: Acute Cholecystitis DS: Discharge Diagnosis Discharge Diagnosis (1) Acute gangrenous cholecystitis: Code(s): K81.0 - Acute cholecystitis Status: Acute Assessment and Plan: patient underwent laparoscopic cholecystectomy on May 15, 2020. (2) Chronic headaches: Code(s): R51.9 - Headache, unspecified; G89.29 - Other chronic pain Status: Chronic (3) Overweight: Code(s): E66.3 - Overweight Status: Chronic DS: Summary Time Spent with Patient Time attestation: Total time spent providing and/or coordinating discharge services: Patient is a 50-year-old man who presented to the emergency room with epigastric and right upper quadrant pain that moved around his upper abdomen like a band. He was seen on May 14. The pain started about 9:00 p.m. the day prior. He had eaten some chicken legs macaroni and cheese and rice for dinner. He was admitted and started on IV Zosyn antibiotics. His pain medications were maximized but he continued to have significant right upper quadrant pain. On 05/15 his white count became more elevated, up to 20,000. He had an ultrasound which showed gallstones and evidence of acute cholecystitis. He was taken to surgery on May 15 and underwent laparoscopic cholecystectomy. At surgery, he was found to have gangrenous acute cholecystitis and possibly gallbladder perforation although, if perforated, it had been walled off with not much spillage of biliary content. Following surgery he continued to receive IV Zosyn antibiotics. He had a RACHELLE drain in the right upper quadrant and will go home with this. On postop day 2., 05/17/2020, he was feeling much better. He was afebrile and comfortable on oral analgesics. Drain output showed only serous fluid. He is able to be discharged on 05/17 in improved condition. He will be maintained on oral antibiotics and seen in the office in 5 days. DS: Data Data Completed and Pending Pending studies at discharge: Pending at discharge 05/15/20 16:37 Surgical [PTH] Routine Labs on day of discharge: Labs from last 24 hours 05/17/20 05/17/20 06:24 06:24 WBC 9.3 RBC 3.83 L Hgb 11.3 L Hct 34.0 L MCV 88.8 MCH 29.5 MCHC 33.2 RDW 13.9 Plt Count 293 MPV 10.0 Sodium 137 Potassium 3.6 Chloride 102 Carbon Dioxide 27 Anion Gap 8 BUN 15 Creatinine 1.00 Estim Creat Clear Calc 84 Estimated GFR > 60 Glucose 108 Calcium 8.5 Discharge Plan Discharge Attending physician on discharge: Santo Singh Consulting providers: Aide Pepe Discharging Clinician: Santo Singh Anticipated Discharge Date/Time: 05/17/20 07:39 Patient Disposition: Home, Self-Care Activity: may shower and as tolerated Diet: low fat Wound Care Instructions: keep dressing dry, remove dressing to shower and change dressing daily Discharge Instructions: 1. Empty RACHELLE drain at least daily and record output in mL on a 24 hour basis. May remove dressings around RACHELLE drain and shower daily. Replace dressings after. Other incisions can be left open. 2. Call office for: -Wound increasingly painful or bleeding -Vomiting -Fever of greater than 101 degrees 3. Expect some blood on dressing and old blood on skin. 4. If no bowel movement for three days, take 1 oz. (30 ml) Milk of Magnesia, if no results, take Fleets enema. 5. No heavy lifting > 15-20 pounds for 2 weeks. 6. No driving for 3 days or while taking narcotic pain medications. 7. Up walking 10-30 minutes three times per day. 8. Resume previous home medications. 9. Follow-up 10-14 days in office for wound check or as previously scheduled. 10. Oral pain medications prescription to be sent home with patient. 11. NUTRITION: Start out by drinking fluids and increas
[2020-05-17] MEDS: PANTOPRAZOLE 40 MG TABLET PO (09:00)
[2020-05-17] MEDS: ENOXAPARIN 40 MG/0.4 ML SYRINGE SUB-Q (09:00)
== END 2020-05-17 10:15 | disposition home or self-care (01) | DRG 418 ==
LOC: ANHED 05-14 02:19 → ANH2MED 05-14 02:26
PROVIDERS: Admitting Provider Surgery; Emergency Provider General Practice; PCP Family Medicine; Visit Provider Surgery
PROC: 0FT44ZZ Resection of Gallbladder, Percutaneous Endoscopic Approach (ICD-10-PCS; CPT 47562; principal; 2020-05-15 14:15)
DX: K80.63 Calculus of gallbladder and bile duct with acute cholecystitis with obstruction (principal); D62 Acute posthemorrhagic anemia; K82.A2 Perforation of gallbladder in cholecystitis; K82.A1 Gangrene of gallbladder in cholecystitis; R51.9 Headache, unspecified; G89.29 Other chronic pain; F17.290 Nicotine dependence, other tobacco product, uncomplicated
CPT/HCPCS: 36415; 74177; 76705; 80048; 80053; 81003; 83690; 85025; 85027; 86850; 86900; 86901; 88304; 96361; 96365; 96366; 96375; 96376; 99285; A9270; C1713; C9113; G0378; J0131; J0330; J1100; J1170; J1650; J1741; J2250; J2270; J2405; J2543; J2704; J2710; J3010; J3480; J7030; J7120; Q9967

== ENCOUNTER → 2020-10-16 00:11 | Outpatient (CLI) | payer OTHER, SELFPAY ==
[2020-10-16 18:03] LABS: SARS-CoV-2 RNA PCR Negative
== END ==
PROVIDERS: PCP Family Medicine; Visit Provider Surgery
DX: Z01.812 Encounter for preprocedural laboratory examination (principal); Z20.822 Contact with and (suspected) exposure to COVID-19
CPT/HCPCS: C9803; U0003; U0005

== ENCOUNTER 2020-10-19 00:14 | Day surgery (SDC) | payer OTHER, SELFPAY ==
[2020-10-11 19:13] VITALS: BMI 28.5
--- NOTE | 2020-10-17 13:35 | PM.SD2 ---
Same Day Admit/Disch: HPI History of Present Illness Chief complaint: umbilical hernia Narrative: Nathan Avila is a 50 year old male whom I know from acute cholecystitis and laparoscopic cholecystectomy in early May last year. He was noted to have an umbilical hernia at that time. This hernia has become bigger and is occasionally painful. He was seen in the office and found to have a reducible but tender umbilical hernia. He is taken to surgery now for umbilical hernia repair with mesh. 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 Gender identity (if verbalized by the patient): Male Sexual Orientation (if Verbalized by the Patient): Straight or Heterosexual Spiritual care concerns: No Same Day Admit/Disch: Med Pre-admit Medications Home Medications Medication Instructions Recorded Confirmed Type No Home Medications 08/28/20 10/19/20 History hydrocodone-acetaminophen 1 - 2 tablet PO Q6H PRN #7 tablet 10/19/20 Rx ketorolac 10 mg PO Q6H 4 Days #16 tablet 10/19/20 Rx Exam Const: General: comfortable, no acute distress, alert and awake HENMT: Head: normocephalic and atraumatic Mouth: Yes Normal oral and palatal mucosa present Eyes: Conjunctivae: conjunctivae normal Pupils: Equal, round and reactive pupils present EOM: EOMs intact bilaterally Neck: Neck: normal visual inspection, no lymphadenopathy and nontender Resp: Effort & Inspection: normal respiratory effort Auscultation: clear to auscultation bilaterally Cardio: Rate: regular rate Rhythm: regular rhythm Heart sounds: no gallops, no murmurs and no rubs GI: Inspection: non-distended, scar ( Laparoscopic trocar site scars) and visible herniation ( umbilical) GI Palp: Yes Soft to palpation, Yes Tenderness to palpation present (GI) ( tender at umbilical hernia), No Hepatomegaly present, No Splenomegaly present and Yes Hernia present ( reducible umbilical hernia) Auscultation: normal bowel sounds Skin: Lesions: no lesions Rashes: no rashes Neuro: General: no focal motor deficits and CN's II-XI intact bilaterally Cranial nerves: Yes Equal, round and reactive pupils present, Yes Bilaterally intact EOM present, Yes facial symmetry and Yes Midline tongue present Speech: normal speech Motor exam (neuro): 5/5 motor strength present throughout and Motor abnormalities not present Extrem: General: no clubbing, cyanosis or edema and edema Psych: Affect: normal affect Thought process: Normal thought process present Insight: Good insight present (Psych) DS: Summary Time Spent with Patient Time attestation: Total time spent providing and/or coordinating discharge services: DS: Admitting Diagnosis Admitting Diagnosis Admitting Diagnosis: reducible umbilical hernia - plan to prepare as an outpatient under anesthesia. The procedure the risks the benefits were discussed. Underlay mesh will be used to bolster the repair. The usual recovery risks and benefits have been discussed. All questions were answered. Patient understands and agrees to go ahead. Smoker -1 cigar per day DS: Discharge Diagn
--- NOTE | 2020-10-18 13:38 | WPDANESEPPF ---
Anes - Initial Pre Proc Eval Procedure: Operation Date: 10/19/20 10:30 Proposed Procedures p Umbilical Hernia Repair with Mesh - Santo Singh MD Date/Time: 10/18/20 13:38 Surgeon: Santo Singh MD Pre Op Diagnosis: umbilical hernia Patient Data Age: 50 Gender: M Height: 1.8 m Weight: 93 kg Allergies Allergy/AdvReac Type Severity Reaction Status Date / Time No Known Allergies Allergy Verified 08/28/20 13:06 Home Medications Medication Instructions Recorded Confirmed Type No Home Medications 08/28/20 10/11/20 History Patient hx anesthesia problems: none Family hx anesthesia problems: none PMFSH Past Medical History Medical History Overweight Patient denies medical problems Surgical History Surgical History History of laparoscopic cholecystectomy 05/15/2020 Hx of appendectomy Family History Family History Mother Family history of diabetes mellitus in first degree relative Social History Social History Tobacco type: cigars Smokeless tobacco user: chewing tobacco Additional smoking assessment comments: 1 cigar a day Alcohol intake: never Substance use: never Substance use type: does not use Living arrangements: with family 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 Gender identity (if verbalized by the patient): Male Sexual Orientation (if Verbalized by the Patient): Straight or Heterosexual Spiritual care concerns: No Anes - Eval Final PreProcedure Day of Procedure 10/18/20 13:38 Patient weight: overweight Heart: regular rate and rhythm Lungs: clear to auscultation and normal air movement Airway: Mallampati scale class II Neurological: alert and oriented Last oral intake: >/= 8 hours ASA classification: II Emergent: no Anesthetic plan: proceed Anesthesia type and monitoring: general LMA Informed Consent: The patient's anesthetic plan and its attendant risks and benefits were discussed with the patient/family/POA. Questions were solicited and answers provided to the satisfaction of the patient/family/POA.
[2020-10-19] MEDS: LACTATED RINGERS 1,000 ML 30 ML IV CONT ×2 (09:06→11:24)
[2020-10-19] MEDS: KETOROLAC 15 MG/ML VIAL (*BKC) IV PUSH (09:07)
[2020-10-19] MEDS: ACETAMINOPHEN 500 MG TABLET 1000 MG PO (09:07)
[2020-10-19 09:40] VITALS: BP 121/76; PULSE 76; RESP 18; TEMP 36.8; O2SAT 98
--- NOTE | 2020-10-19 10:19 | WPDHPUPDATE1 ---
History and Physical Update Update Date/Time: 10/19/20 10:19 History and Physical has been reviewed, including an updated exam of the patient. There are NO changes in the patient's condition. Risks, benefits, and alternatives have been discussed and questions answered. Patient agrees to proceed with procedure.
[2020-10-19] MEDS: ceFAZolin 2 GM/D5W 50 ML 2 GM/50 ML BAG IVPB (10:25)
[2020-10-19] MEDS: BUPIVACAINE HCL 0.5% PF 30 ML VIAL 10 ML INFILTRATE (10:40)
[2020-10-19 11:24] VITALS: BP 104/63; PULSE 71; RESP 12; O2SAT 95
--- NOTE | 2020-10-19 11:31 | PM.PROC ---
Procedure Note - Detailed Date of procedure: 10/19/20 Pre-op diagnosis: umbilical hernia Umbilical hernia Post-op diagnosis: same Procedure performed: Umbilical hernia repair with 4.6 cm Parietex underlay mesh Description of procedure: Patient was taken to the operating room and IV sedation was administered. Prep and drape was carried out. The proposed incision along the upper margin of the umbilicus was marked on the skin. Local anesthetic was infiltrated into the skin and the deeper subcutaneous tissues. Incision was made and dissection was carried down through the skin and to the hernia sac. The sac was then dissected free from the umbilical skin and the surrounding subcutaneous tissues. It was dissected down to its neck. Additional local anesthetic was infiltrated into the neck and the fascia surrounding the neck of the hernia sac. The sac was then amputated at its neck. The subcutaneous was undermined around the hernia defect. Additional local was infiltrated around the fascia. I placed a finger inside the hernia defect and checked for any abdominal wall adhesions in the area. None were found. No other hernias were noted. A 4.6 cm Parietex the [place] was chosen. It was folded and placed in the defect. Once it symmetrically covered the defect, I placed cranial and caudal transfascial sutures of 0 Ethibond. These sutures were placed in such a fashion that, when tied, they would advance the edges of the hernia defect towards 1 another. These sutures were tied and had the desired effect. I then closed the hernia defect with [id number] mattress sutures of 0 Ethibond. The repair looked quite satisfactory. I then infiltrated additional local all around the areas of the repair. The umbilical skin was tacked to the fascia with 3 0 Vicryl suture. The subcutaneous was closed with 3 0 Vicryl. Subcuticular interrupted 4 O Vicryl skin stitches were placed. The skin was then closed with running 4 0 Monocryl subcuticular suture. Wound was dressed with Exofin surgical adhesive. The patient was awakened and taken to recovery in good condition. Counts were correct x2. Implants: 4.6 cm Parietex hernia mesh Anesthesia: MAC and local (0.5% Marcaine with Exparel) Surgeon: Santo Singh MD Banker Mason: Malorie ESCOBEDO Estimated blood loss (mL): 5 Drains: No Packing: No Pathology: none sent Complications: None Condition: stable Disposition: same day Findings: 15 millimeter hernia defect
[2020-10-19 11:45] VITALS: BP 100/61; PULSE 62; RESP 20
[2020-10-19 12:15] VITALS: BP 103/63; PULSE 55; RESP 20
[2020-10-19 12:45] VITALS: BP 111/67; PULSE 53; RESP 20
--- NOTE | 2020-10-19 12:46 | SUR.PHASEII ---
1225 - dr. ivey in room talking with pt
[2020-10-19 13:15] VITALS: BP 116/67; PULSE 54; RESP 20
== END 2020-10-19 13:18 | disposition home or self-care (01) ==
PROVIDERS: PCP Family Medicine; Visit Provider Surgery
PROC: (CPT 49585; principal; 2020-10-19 10:30)
DX: K42.9 Umbilical hernia without obstruction or gangrene (principal); F17.220 Nicotine dependence, chewing tobacco, uncomplicated; F17.290 Nicotine dependence, other tobacco product, uncomplicated
CPT/HCPCS: 49585; A9270; C1781; C9290; C9803; J0690; J1100; J1885; J2250; J2405; J2704; J3010; J7120; U0003; U0005

== ENCOUNTER 2020-11-28 09:39 | Outpatient (CLI) | payer OTHER, SELFPAY ==
--- NOTE | 2020-11-28 09:46 | EST_ITS ---
Patient Info Name: Nathan Avila Age: 50 years : 1970 Gender: Male Ht: 71 in Wt: 206 lbs BSA: 2.18 m2 HR: 61 bpm BP: 112 / 71 mmHg Heart Rhythm: Sinus Rhythm Exam Date: 11/28/2020 10:03 AM Exam Location: [facility] Stress Patient Status: Outpatient Admit Date: 11/28/2020 Staff Ordering Physician: Melanie Castle NP Attending Provider: Melanie Castle NP Exercise Technologist: Alexandra Strauss CT Exercise Physician: Kyle Chávez DO Exam Type: CA stress test treadmill Study Info An exercise stress test was performed. Summary 1. 1. Negative Dalton exercise stress test for ischemic ST changes by ECG criteria. 2. 2. Good functional capacity, achieving 12 METs of workload. 3. 3. Appropriate HR response to exercise. 4. 4. Appropriate HR recovery at 1 minute post exercise. 5. 5. No imaging with stress testing. 6. 6. Patient informed of the above results. Protocol: [place] Stress ECG Details Stage: REST Duration (min): 1 min : 2 sec Speed (mph): 0.0 Grade (%): 0 HR (bpm): 64 SBP (mmHg): 112 DBP (mmHg): 71 METS: --- Stage: REST Duration (min): 7 min : 16 sec Speed (mph): 0.0 Grade (%): 0 HR (bpm): 80 SBP (mmHg): 112 DBP (mmHg): 71 METS: --- Stage: STAGE 1 Duration (min): 1 min : 0 sec Speed (mph): 1.7 Grade (%): 10 HR (bpm): 97 SBP (mmHg): 112 DBP (mmHg): 71 METS: --- Stage: STAGE 1 Duration (min): 2 min : 0 sec Speed (mph): 1.7 Grade (%): 10 HR (bpm): 100 SBP (mmHg): 112 DBP (mmHg): 71 METS: --- Stage: STAGE 1 Duration (min): 3 min : 0 sec Speed (mph): 1.7 Grade (%): 10 HR (bpm): 100 SBP (mmHg): 125 DBP (mmHg): 64 METS: --- Stage: STAGE 2 Duration (min): 1 min : 0 sec Speed (mph): 2.5 Grade (%): 12 HR (bpm): 105 SBP (mmHg): 125 DBP (mmHg): 64 METS: --- Stage: STAGE 2 Duration (min): 2 min : 0 sec Speed (mph): 2.5 Grade (%): 12 HR (bpm): 112 SBP (mmHg): 136 DBP (mmHg): 62 METS: --- Stage: STAGE 2 Duration (min): 3 min : 0 sec Speed (mph): 2.5 Grade (%): 12 HR (bpm): 115 SBP (mmHg): 136 DBP (mmHg): 62 METS: --- Stage: STAGE 3 Duration (min): 1 min : 0 sec Speed (mph): 3.4 Grade (%): 14 HR (bpm): 120 SBP (mmHg): 138 DBP (mmHg): 65 METS: --- Stage: STAGE 3 Duration (min): 2 min : 0 sec Speed (mph): 3.4 Grade (%): 14 HR (bpm): 123 SBP (mmHg): 138 DBP (mmHg): 65 METS: --- Stage: STAGE 3 Duration (min): 3 min : 0 sec Speed (mph): 3.4 Grade (%): 14 HR (bpm): 126 SBP (mmHg): 153 DBP (mmHg): 65 METS: --- Stage: STAGE 4 Duration (min): 1 min : 0 sec Speed (mph): 4.2 Grade (%): 16 HR (bpm): 142 SBP (mmHg): 153 DBP (mmHg): 65 METS: --- Stage: STAGE 4 Duration (min): 1 min : 30 sec
== END 2020-11-28 09:40 | disposition home or self-care (01) ==
PROVIDERS: PCP Family Medicine; Visit Provider Nurse Practitioner Family
DX: R06.00 Dyspnea, unspecified (principal)
CPT/HCPCS: 93017

== ENCOUNTER → 2020-12-04 04:45 | Outpatient (CLI) | payer OTHER, SELFPAY ==
[2020-12-04 19:57] LABS: SARS-CoV-2 RNA PCR Negative
== END ==
PROVIDERS: PCP Family Medicine; Visit Provider Internal Medicine Gastroenterology
DX: Z01.812 Encounter for preprocedural laboratory examination (principal); Z20.822 Contact with and (suspected) exposure to COVID-19
CPT/HCPCS: C9803; U0003; U0005

== ENCOUNTER 2020-12-07 01:05 | Day surgery (SDC) | payer OTHER, SELFPAY ==
[2020-11-29 13:49] VITALS: BMI 31.4
--- NOTE | 2020-12-06 11:22 | WPDANESEPPF ---
Anes - Initial Pre Proc Eval Procedure: Operation Date: 12/07/20 08:15 Proposed Procedures p Esophagogastroduodenoscopy & Colonoscopy - John Escamilla MD Date/Time: 12/06/20 11:22 Surgeon: John Escamilla MD Pre Op Diagnosis: GERD, Diarrhea Patient Data Age: 50 Gender: M Height: 1.8 m Weight: 102.2 kg Allergies Allergy/AdvReac Type Severity Reaction Status Date / Time No Known Allergies Allergy Verified 12/07/20 06:51 Home Medications Medication Instructions Recorded Confirmed Type sod picosulf 10 mg-magnes 3.5 160 ml PO BID #160 ml 11/14/20 12/07/20 Rx gram-citric 12 gram/160 mL oral solution loperamide 2 mg PO DAILY PRN 12/07/20 12/07/20 History Patient hx anesthesia problems: none Family hx anesthesia problems: none PMFSH Past Medical History Medical History (Updated 11/28/20 @ 15:41 by Melanie Castle NP) Anxiety GERD (gastroesophageal reflux disease) History of gangrene (~05/2020) gangrenous cholelithiasis Normal cardiac stress test (~11/2020) Overweight Sleep apnea Surgical History Surgical History History of laparoscopic cholecystectomy (~05/15/20) History of umbilical hernia repair (~10/19/20) Hx of appendectomy Hx of repair of right rotator cuff (~2019) Family History Family History Mother Family history of diabetes mellitus in first degree relative Social History Social History Social History: Lives with 2 sons, from . [place]. Smoking packs per day: 1 Smoking cigarettes per day: 20.0 Years smoked: 34 Smoking pack-years: 34.00 Smoking status: Current every day smoker Tobacco type: cigars Additional smoking assessment comments: 3 cigar a day Alcohol intake: former Substance use: never Substance use type: does not use Living arrangements: with family Additional occupation/education comments: [employer] currently out on workman's comp for right shoulder injury. Gender identity (if verbalized by the patient): Male Spiritual care concerns: No Anes - Eval Final PreProcedure Day of Procedure 12/06/20 11:22 Patient weight: obese Heart: regular rate and rhythm Lungs: clear to auscultation and normal air movement Airway: Mallampati scale class II Neurological: alert and oriented Last oral intake: >/= 8 hours ASA classification: III Emergent: no Anesthetic plan: proceed Anesthesia type and monitoring: general GIVS and standard monitoring Informed Consent: The patient's anesthetic plan and its attendant risks and benefits were discussed with the patient/family/POA. Questions were solicited and answers provided to the satisfaction of the patient/family/POA.
[2020-12-07 06:54] VITALS: BP 101/64; PULSE 68; RESP 16; TEMP 36.1; O2SAT 99; BMI 28.2
[2020-12-07] MEDS: LACTATED RINGERS 1,000 ML 150 ML IV CONT (07:05)
--- NOTE | 2020-12-07 07:24 | PM.HPGS ---
History of Present Illness History of Present Illness Consent: Risks, benefits, and alternatives have been discussed and questions answered. Patient agrees to proceed with procedure. Chief complaint: GERD, Diarrhea Narrative: Nathan Avila is a 50 year old male who has suffered From acid reflux for several years; he has tried recent head of his bed, but still has heartburn frequently at night. He denies dysphagia. he also has chronic diarrhea. This began about 10 years ago. He will have watery or very unformed stools many times a day, often with urgency. He recently began taking 2 Imodium tablets each morning which has helped somewhat. There is no family history of IBD or celiac disease. Review of Systems Review of Systems: All systems reviewed & are unremarkable except as noted in HPI and below PMFSH Past Medical History Medical History Anxiety GERD (gastroesophageal reflux disease) History of gangrene (~05/2020) gangrenous cholelithiasis Normal cardiac stress test (~11/2020) Overweight Sleep apnea Surgical History Surgical History History of laparoscopic cholecystectomy (~05/15/20) History of umbilical hernia repair (~10/19/20) Hx of appendectomy Hx of repair of right rotator cuff (~2019) Family History Family History Mother Family history of diabetes mellitus in first degree relative Social History Social History Social History: Lives with 2 sons, from . [place]. Smoking packs per day: 1 Smoking cigarettes per day: 20.0 Years smoked: 34 Smoking pack-years: 34.00 Smoking status: Current every day smoker Tobacco type: cigars Additional smoking assessment comments: 3 cigar a day Alcohol intake: former Substance use: never Substance use type: does not use Living arrangements: with family Additional occupation/education comments: [employer] currently out on workman's comp for right shoulder injury. Gender identity (if verbalized by the patient): Male Spiritual care concerns: No Meds Home Medications and Allergies Home Medications Medication Instructions Recorded Confirmed Type sod picosulf 10 mg-magnes 3.5 160 ml PO BID #160 ml 04/06/21 04/29/21 Rx gram-citric 12 gram/160 mL oral solution loperamide 2 mg PO DAILY PRN 12/07/20 12/07/20 History Allergies Allergy/AdvReac Type Severity Reaction Status Date / Time No Known Allergies Allergy Verified 12/07/20 06:51 Vital Signs Vital Signs - 24 hr 12/07/20 06:54 Temperature 36.1 C L Pulse Rate 68 Respiratory Rate 16 Blood Pressure 101/64 Pulse Oximetry 99 Exam Const: General: alert Orientation/consciousness: patient oriented x3 Resp: Auscultation: clear to auscultation bilaterally Cardio: Rhythm: regular rhythm GI: GI Palp: Yes Soft to palpation and No Tenderness to palpation present (GI) Neuro: General: patient oriented x3 Assessment and Plan Assessment and plan (1) GERD (gastroesophageal reflux disease): Code(s): K21.9 - Gastro-esophageal reflux disease without esophagitis Status: Acute Assessment and Plan: EGD with possible biopsy or dilatation or cautery. (2) Chronic diarrhea: Code(s): K52.9 - Noninfective gastroenteritis and colitis, unspecified Status: Acute Assessment and Plan: Colonoscopy with possible biopsy or polypectomy or cautery or injection of substances.
[2020-12-07] MEDS: BENZOCAINE (*SP) 60 ML SPRAY CAN (HURRICAINE) 1 SPRAY MUCOUS MEM (08:17)
[2020-12-07 08:38] VITALS: BP 91/55; PULSE 58; RESP 15; O2SAT 96
[2020-12-07 08:48] VITALS: BP 106/66; PULSE 46; RESP 16; O2SAT 99
[2020-12-07 08:58] VITALS: BP 134/82; PULSE 61; RESP 22; O2SAT 99
== END 2020-12-07 09:18 | disposition home or self-care (01) ==
PROVIDERS: PCP Family Medicine; Visit Provider Internal Medicine Gastroenterology
PROC: 0DJ08ZZ Inspection of Upper Intestinal Tract, Via Natural or Artificial Opening Endoscopic (ICD-10-PCS; CPT 43235; principal; 2020-12-07 08:15)
DX: K59.1 Functional diarrhea (principal); D12.8 Benign neoplasm of rectum; K57.30 Diverticulosis of large intestine without perforation or abscess without bleeding; K21.9 Gastro-esophageal reflux disease without esophagitis; F41.9 Anxiety disorder, unspecified; G47.30 Sleep apnea, unspecified; F17.210 Nicotine dependence, cigarettes, uncomplicated
CPT/HCPCS: 45385; 45380; 43239; 87081; 88305; C9803; J2704; J7120; U0003; U0005

== ENCOUNTER 2021-05-14 08:13 | Outpatient (CLI) | payer OTHER, SELFPAY ==
--- NOTE | ~2021-05-14 | CT_ITS ---
EXAMINATION: CT sinus wo con DATE: 05/14/2021 08:52 INDICATION: Hypertrophy of nasal turbinates TECHNIQUE: Computed tomography (CT) of the paranasal sinuses was performed without contrast. Iterativ e reconstruction technique was employed. Exam dose: 311.14 mGy-cm total exam DLP. COMPARISON: None FINDINGS: There is rightward deviation of the nasal septum. The nasal turbinates are prominent in siz e bilaterally. Intralamellar cell of both middle nasal turbinates. The ostiomeatal units are patent bilaterally. Approximately 1 x 2 cm polyp or mucous retention cyst along the lateral wall of the right maxillary s inus. The paranasal sinuses are otherwise normally developed and aerated. Diminished pneumatization and partial opacification of the right mastoid air cells. Left mastoid air cells appear normal. IMPRESSION: Rightward deviation of nasal septum Bilateral interlamellar cell of middle nasal turbinate; bilateral prominent nasal turbinates Approximately 1 x 2 cm polyp or mucous retention cyst of right maxillary sinus Diminished pneumatization and partial opacification of right mastoid air cells Reviewed, dictated and finalized at [facility] Reviewed, dictated and finalized at [facility]. IMPRESSION: Rightward deviation of nasal septum Bilateral interlamellar cell of middle nasal turbinate; bilateral prominent merry al turbinates Approximately 1 x 2 cm polyp or mucous retention cyst of right maxillary sinus Diminished pneumatization and partial opacification of right mastoid air cells
== END 2021-05-14 08:14 | disposition home or self-care (01) ==
LOC: ANHIMG 08:17
PROVIDERS: PCP Family Medicine; Visit Provider Otolaryngology
DX: J34.3 Hypertrophy of nasal turbinates (principal); J34.2 Deviated nasal septum; R09.81 Nasal congestion; R51.9 Headache, unspecified; R44.8 Other symptoms and signs involving general sensations and perceptions; J34.1 Cyst and mucocele of nose and nasal sinus; J32.0 Chronic maxillary sinusitis
CPT/HCPCS: 70486

== ENCOUNTER → 2021-06-13 02:40 | Outpatient (CLI) | payer OTHER, SELFPAY ==
[2021-06-13 17:30] LABS: SARS-CoV-2 RNA PCR Negative
== END ==
PROVIDERS: PCP Family Medicine; Visit Provider Otolaryngology
DX: Z01.812 Encounter for preprocedural laboratory examination (principal); Z20.822 Contact with and (suspected) exposure to COVID-19
CPT/HCPCS: C9803; U0003; U0005

== ENCOUNTER 2021-06-15 01:39 | Day surgery (SDC) | payer OTHER, SELFPAY ==
[2021-06-11 08:41] VITALS: BMI 30.7
--- NOTE | 2021-06-11 09:19 | PC.NURSE ---
Report to the Outpatient Waiting Room, entrance under the green pavilion located off [facility], at time 1145 on date 06/15/21. OR Time: 1345. - You and your visitor will be asked a series of questions to screen for COVID 19 for your protection. - A mask is required within the hospital. - Only one visitor is allowed at this time. Patient visitors will be guided where to wait when not with patient. Preoperative COVID Testing Requirements: No COVID Test needed if: (proof is required; if not received patient will have Rapid Test prior to entry) - Patient has received COVID Vaccine at least 14 days prior to procedure date or - Patient has positive COVID test result within last 90 days of surgery date. COVID Test needed if above criteria is not met If not COVID vaccinated a COVID test must be conducted within 72 hours of surgery and patient is asked to isolate self from time of testing until procedure. You will go to the [facility] for your COVID testing. The [employer] [facility] site is located at the corner of [address] [facility]. COVID TEST: 06/13 AT 0835 You will only be called if COVID results are positive and your surgeon may reschedule your elective surgery date. Patients may have clear liquids (water, carbonated beverages, clear teas, apple juice) until 3 hours prior to surgery with a maximum of 20 ounces. - No food from midnight until time of surgery - Infants may have breast milk until 4 hours before surgery, infant formula 6 hours prior to surgery. - Children will be allowed to drink immediately following surgery. If applicable, please bring a bottle or sippy cup to assist with drinking. Juice, water, soda, and popsicles are readily available. For infants on formula, please bring formula the day of surgery. Pacifiers are allowed. Take the following medications with a SIP of water the morning of surgery: N/A Medications to discontinue per physician: N/A Date to take last dose Please no make-up, nail slovak, hairspray, perfume, deodorant, or body powder the day of surgery. No jewelry (including any body piercings) or valuables the day of surgery, leave them at home. Please take a shower or bath the night before, or the morning of, surgery with an antibacterial soap. Wear comfortable, loose fitting clothing. Children are encouraged to wear pajamas. - Jewelry must be removed prior to entering the operating room. Rings and piercings that are not removed may be cut off. - The hospital will not accept responsibility for valuables. - Please leave all valuables, including medications, at home the day of surgery. If you are going home after surgery, a licensed river driver must drive you home. - NO public transportation without another adult. - We recommend that an adult stay with you for 24 hours following discharge. - We also recommend that you do not drive, make important decision, drink alcoholic beverages, or take any drugs that were not prescribed by your health care provider for at least 24 hours after your discharge time. For Pediatric surgeries, we recommend two adults accompany the child home (only one inside the building at this time). Follow any additional instructions given to you from your surgeon. Telephone instructions given to JOSE CHARLES and asked if any additional questions and then verbalized understanding. Patient advised to call surgeon office or pre surgery nurse liaison [phone] if any additional questions.
--- NOTE | 2021-06-13 14:17 | PM.IMHP ---
H&P: HPI History of Present Illness Date/Time: 06/13/21 14:17 Chief Complaint: Nasal obstruction nasal congestion septal deviation inferior turbinate hypertrophy right maxillary sinus cyst right maxillary sinus sinusitis Narrative: patient presents for planned surgical procedures. No change in symptoms no change in history. Review of Systems Constitutional: Constitutional: Denies fatigue, Denies fever(s) and Denies lethargy Eyes: Eyes: Denies blurry vision and Denies change in vision ENT: Reports as per HPI Cardiovascular: Cardiovascular: Denies chest pain Respiratory: Respiratory: Denies cough Endocrine: Endocrine: Denies fatigue Hematologic/Lymphatic: Hematologic/Lymphatic: Denies easy bleeding, Denies easy bruising and Denies lymphadenopathy Allergic/Immunologic: Allergic/Immunologic: Denies seasonal rhinorrhea [facility] Past Medical History Medical History Anxiety GERD (gastroesophageal reflux disease) History of gangrene (~05/2020) gangrenous cholelithiasis Normal cardiac stress test (~11/2020) Sleep apnea Surgical History Surgical History History of laparoscopic cholecystectomy (~05/15/20) History of umbilical hernia repair (~10/19/20) Hx of appendectomy Hx of repair of right rotator cuff (~2019) Family History Family History Mother Family history of diabetes mellitus in first degree relative Social History Social History Social History: Lives with 2 sons, from . [place]. Smoking packs per day: 1 Smoking cigarettes per day: 20.0 Years smoked: 34 Smoking pack-years: 34.00 Smoking status: Former smoker Tobacco type: cigars and smokeless tobacco Smoking end date: 03/11/21 Additional smoking assessment comments: 1 CIGAR/DAY, 1/4 TIN OF CHEWING TOBACCO Alcohol intake: never Substance use: never Substance use type: does not use Additional living arrangements comments: WITH CHILDREN Additional occupation/education comments: [employer] currently out on workman's comp for right shoulder injury. Gender identity (if verbalized by the patient): Male Sexual Orientation (if Verbalized by the Patient): Straight or Heterosexual Spiritual care concerns: No Meds Home Medications and Allergies Home Medications Medication Instructions Recorded Confirmed Type erenumab-aooe 70 mg/mL 70 mg SUBCUT MONTHLY #1 ml 02/14/21 06/11/21 Rx subcutaneous auto-injector azelastine 137 mcg (0.1 %) nasal 1 spray INTRANASAL Q12H #30 ml 04/23/21 06/11/21 Rx spray aerosol atorvastatin 40 mg tablet 40 mg PO DAILY #30 tablet 04/24/21 06/11/21 Rx esomeprazole magnesium [Nexium] 40 mg PO DAILY 06/11/21 06/11/21 History Allergies Allergy/AdvReac Type Severity Reaction Status Date / Time No Known Allergies Allergy Verified 06/11/21 08:39 Exam Const: General: cooperative, healthy appearing, comfortable, well developed and alert HENMT: Head: normal to inspection, normocephalic and atraumatic Ears: hearing grossly normal bilaterally, external ears normal, TM's normal bilaterally and EAC's normal General nose exam: Normal external nose present, Normal nares present and Other nasal findings present ( Septal deviation inferior turbinate hypertrophy) Face and sinus: normal facial exam Mouth: Yes Normal oral and palatal mucosa present, Yes lip normal, Yes tongue normal, Yes oropharynx normal and Yes moist mucous membranes Teeth and gingiva: dentition normal and gingiva normal Throat: posterior oropharynx normal, tonsils normal and uvula midline Eyes: General: appearance normal, both eyes and all related structures Periorbital: periorbital findings normal Eyelids: eyelids normal Conjunctivae: conjunctivae normal Sclera: sclera
[2021-06-15] VITALS (9 sets, daily range): BP systolic 113–166; BP diastolic 72–92; PULSE 61–66; RESP 14–20; TEMP 36.2–36.3; O2SAT 97–100; BMI 30.4
--- NOTE | 2021-06-15 07:04 | WPDHPUPDATE1 ---
History and Physical Update Update Date/Time: 06/15/21 07:04 History and Physical has been reviewed, including an updated exam of the patient. There are NO changes in the patient's condition. Risks, benefits, and alternatives have been discussed and questions answered. Patient agrees to proceed with procedure.
[2021-06-15] MEDS: ACETAMINOPHEN 500 MG TABLET 1000 MG PO (12:20)
[2021-06-15] MEDS: LACTATED RINGERS 1,000 ML 30 ML IV CONT ×2 (12:29→15:43)
--- NOTE | 2021-06-15 14:01 | WPDANESEPPF ---
Anes - Initial Pre Proc Eval Procedure: Operation Date: 06/15/21 13:45 Proposed Procedures p Septoplasty - Kishan Hawkins MD s Bilateral Inferior Turbinectomy - Kishan Hawkins MD Date/Time: 06/15/21 14:01 Surgeon: Kishan Hawkins MD Pre Op Diagnosis: chronic sinusitis Patient Data Age: 51 Gender: M Height: 1.8 m Weight: 99 kg Last Vital Signs Temp 36.3 C L 06/15/21 12:00 Pulse 64 06/15/21 12:00 Resp 20 06/15/21 12:00 BP 123/74 06/15/21 12:00 Pulse Ox 99 06/15/21 12:00 Allergies Allergy/AdvReac Type Severity Reaction Status Date / Time No Known Allergies Allergy Verified 06/15/21 11:49 Home Medications Medication Instructions Recorded Confirmed Type erenumab-aooe 70 mg/mL 70 mg SUBCUT MONTHLY #1 ml 02/14/21 06/15/21 Rx subcutaneous auto-injector azelastine 137 mcg (0.1 %) nasal 1 spray INTRANASAL Q12H #30 ml 04/23/21 06/15/21 Rx spray aerosol atorvastatin 40 mg tablet 40 mg PO DAILY #30 tablet 04/24/21 06/15/21 Rx esomeprazole magnesium [Nexium] 40 mg PO DAILY 06/11/21 06/15/21 History Patient hx anesthesia problems: none Family hx anesthesia problems: none Results Review: All pre-operative results and documents have been reviewed as part of the pre-operative evaluation. [facility] Past Medical History Medical History Anxiety GERD (gastroesophageal reflux disease) History of gangrene (~05/2020) gangrenous cholelithiasis Normal cardiac stress test (~11/2020) Sleep apnea Surgical History Surgical History History of laparoscopic cholecystectomy (~05/15/20) History of umbilical hernia repair (~10/19/20) Hx of appendectomy Hx of repair of right rotator cuff (~2019) Family History Family History Mother Family history of diabetes mellitus in first degree relative Social History Social History Social History: Lives with 2 sons, from . [place]. Smoking packs per day: 1 Smoking cigarettes per day: 20.0 Years smoked: 34 Smoking pack-years: 34.00 Smoking status: Former smoker Tobacco type: cigars and smokeless tobacco Smoking end date: 03/11/21 Additional smoking assessment comments: 1 CIGAR/DAY, 1/4 TIN OF CHEWING TOBACCO Alcohol intake: never Substance use: never Substance use type: does not use Living arrangements: with family Additional living arrangements comments: WITH CHILDREN Additional occupation/education comments: [employer] currently out on [employer] comp for right shoulder injury. Gender identity (if verbalized by the patient): Male Sexual Orientation (if Verbalized by the Patient): Straight or Heterosexual Spiritual care concerns: No Anes - Eval Final PreProcedure Day of Procedure 06/15/21 14:01 Patient weight: obese Heart: regular rate and rhythm Lungs: clear to auscultation and normal air movement Airway: Mallampati scale class II Neurological: alert and oriented Last oral intake: >/= 8 hours ASA classification: II Emergent: no Anesthetic plan: proceed Anesthesia type and monitoring: general ETT Results Review: All pre-operative results and documents have been reviewed as part of the pre-operative evaluation. Informed Consent: The patient's anesthetic plan and its attendant risks and benefits were discussed with the patient/family/POA. Questions were solicited and answers provided to the satisfaction of the patient/family/POA.
[2021-06-15] MEDS: ceFAZolin 2 GM/D5W 50 ML 2 GM/50 ML BAG IVPB (14:10)
[2021-06-15] MEDS: OXYMETAZOLINE HCL 0.05% NAS 15 ML BTL (*BKC) 1 SPRAY XX (14:32)
[2021-06-15] MEDS: LIDO 1%/EPINEPHRINE 1:100,000 50 ML VIAL INFILTRATE (14:33)
--- NOTE | 2021-06-15 16:06 | P.OP_ITS ---
Procedure Note - Detailed Date of Procedure 06/15/21 Pre-op Diagnosis chronic sinusitis of the right maxillary sinus right maxillary retention cyst obstruction, septal deviation, nasal congestion, nasal obstruction, inferior turbinate hypertrophy Post-op Diagnosis same Procedure Performed 1. Endoscopic assisted septoplasty, 2. Inferior turbinate submucosal resection with outfracture, 3. Right maxillary antrostomy with tissue removed Surgeon Kishan Hawkins MD Instructional Facilitator None Anesthesia general Indications See above Findings Large mucous retention cyst nearly obstructing the outflow tract of the maxillary sinus on the right septal deviation to the left straight after procedure inferior turbinate hypertrophy well reduced following procedure largely bony component Description of Procedure Patient was correctly identified consent verified in the preoperative holding area. The patient was then brought to the operating room time-out was performed. General anesthesia induced endotracheal tube secure taped the left lower lip. Patient prepped and draped for the aforementioned procedure. Time- out performed. Afrin-soaked pledgets placed allowed to sit for 5 minutes then removed. Under 0 degree endoscopic guidance the aforementioned findings were noted. 10 cc 1% local with 1 100,000 parts epinephrine is injected in the bilateral nasal septum and anterior heads of the inferior turbinates. Cristino incision made on the left the 15 blade. Left mucoperichondrial flap elevated with 7 Czech suction. Septum transected caudal elevator right-sided mucoperichondrial flap elevated. Small left perforation noted no concomitant right perforation. Deviated septum remove the combination of Smith Barreto forceps osteotome and Melissa forceps. Septum was very straight following procedure. Right middle turbinate medialized with [place]. Backbiter utilized to perform uncinectomy and antrostomy widened with microdebrider as well as straight through cut. Large cyst easily visible. 70 degree debrider excuse the 60 degree curved microdebrider as well as 30 degree endoscope utilized to make sure the cyst was completely removed. The anterior head of the inferior turbinates bilaterally were entered with the 2 mm turbinate blade on the microdebrider debrided the submucosal plane and outfractured bilateral nasal passages suction the choana bleeding was adequate excuse me hemostasis with that was adequate bleeding was minimal. Sandor incision should treat anteriorly with 3 interrupted 5 0 fast gut sutures. Perforation was near close following this. Desouza splints placed right trimmed to not obstruct the remove the middle turbinate. Desouza splints sutured anteriorly using a 3-0 interrupted excuse me 3 0 mattressed nylon suture. Care the patient was turned over to Anesthesiology total blood loss approximately 10 cc. There were no complications. I performed all dictated portions of the procedure. Estimated Blood Loss -10.0 Drains No Packing No Pathology none sent Complications No immediate complications Condition stable Disposition PACU
[2021-06-15] MEDS: oxyCODONE HCL (*CRX) 5 MG TAB IR PO (16:42)
--- NOTE | 2021-06-15 17:32 | SUR.PHASEII ---
Addendum entered by Mary Lindsay RN 06/15/21 18:23: Patient now at baseline orientation status Original Note: Patient having difficultly remembering where he is/why he is here. VVS, speech intact, hand precision machine operator equal, no additional complaints/symptoms noted. Informed Dr. Llanes, states to continue to observe patient. No new orders.
[2021-06-15 17:43] LABS: Glucose Point of Care 146 mg/dl (65-105)
== END 2021-06-15 18:30 | disposition home or self-care (01) ==
PROVIDERS: PCP Family Medicine; Visit Provider Otolaryngology
PROC: (CPT 30520; principal; 2021-06-15 13:45)
PROC: (CPT 30520; 2021-06-15 13:45)
DX: J32.0 Chronic maxillary sinusitis (principal); J34.3 Hypertrophy of nasal turbinates; J34.2 Deviated nasal septum; R09.81 Nasal congestion; R51.9 Headache, unspecified; R44.8 Other symptoms and signs involving general sensations and perceptions; J34.1 Cyst and mucocele of nose and nasal sinus; J34.89 Other specified disorders of nose and nasal sinuses; Z87.891 Personal history of nicotine dependence; F41.9 Anxiety disorder, unspecified; K21.9 Gastro-esophageal reflux disease without esophagitis; G47.30 Sleep apnea, unspecified; Z79.899 Other long term (current) drug therapy
CPT/HCPCS: 30520; 30140; 31267; 82948; A9270; C9803; J0330; J0690; J1100; J2250; J2405; J2704; J7120; U0003; U0005

== ENCOUNTER 2021-08-05 11:24 | Emergency (ER) | payer OTHER, SELFPAY ==
--- NOTE | ~2021-08-05 | CT_ITS ---
EXAMINATION: CTA chest PE protocol DATE: 08/05/2021 14:07 INDICATION: Shortness of breath. Elevated d-dimer. TECHNIQUE: Computed tomography angiography (CTA) of the chest was performed with 100 mL Omnipaque-350 intravenous contrast timed to evaluate the pulmonary arteries. Coronal maximum intensity projection 3D-reconstructions were created by the technologist. Automated exposure control and iterative reconst ruction technique were employed. Exam dose: 751.23 mGy-cm total exam DLP. COMPARISON: 08/05/2021 portable AP chest FINDINGS: There is diagnostic contrast enhancement of the pulmonary. No pulmonary embolism is evident . No thoracic aortic aneurysm or dissection. Heart size is normal. There is mild bilateral hilar and mediastinal lymph node prominence, likely reactive. There are scatt ered patchy infiltrates throughout both lungs, likely due to Covid pneumonia. No pleural or pericardial effusion. Included skeletal structures are unremarkable. Status post cholecystectomy. Probable small left adrenal adenoma. IMPRESSION: Scattered bilateral patchy pulmonary infiltrates suggesting Covid pneumonia No pulmonary embolism is identified. Reviewed, dictated and finalized at [facility]. Reviewed, dictated and finalized at location [facility]. ENGINEER
--- NOTE | ~2021-08-05 | XR_ITS ---
XR chest 1V portable DATE: 08/05/2021 12:55 INDICATION: Chest pain, shortness of breath. Covid-positive test TECHNIQUE: Portable upright AP chest on 08/05/2021 at 1240 hours COMPARISON: 10/2018 PA and lateral chest FINDINGS: There are patchy infiltrates in the mid and lower lung zones bilaterally. Normal heart size. No pleural effusion or pulmonary congestion or pneumothorax. Surgical clips, right upper quadrant, consistent with cholecystectomy. Postoperative change of proxim al right humerus. IMPRESSION: Patchy bilateral mid and lower lung infiltrates consistent with Covid pneumonia Reviewed, dictated and finalized at location [facility]. IC RELATIONS PROFESSIONAL IMPRESSION: Patchy bilateral mid and lower lung infiltrates consistent with Cov id pneumonia
[2021-08-05 12:12] VITALS: BP 111/77; PULSE 96; RESP 18; TEMP 36.2; O2SAT 96
--- NOTE | 2021-08-05 12:27 | ECG_ITS ---
Measurements Intervals [place] Rate: 91 P: 12 MT: 160 QRS: 26 QRSD: 90 T: -2 QT: 354 QTc: 436 Interpretive Statements SINUS RHYTHM BORDERLINE T WAVE ABNORMALITY- INFERIOR LEADS BORDERLINE ECG Electronically Signed On 08-05-2021 17:45:56 ROLLER DIE CUTTING MACHINE OPERATOR by Kyle Chávez D.O.
--- NOTE | 2021-08-05 12:43 | ED.SOB ---
HPI - SOB/Dyspnea General Chief Complaint: Shortness of Breath/Dyspnea Stated Complaint: cough, SOB Time Seen by Provider: 08/05/21 12:27 Source: patient Mode of arrival: ambulatory Limitations: no limitations History of Present Illness HPI Narrative: Patient is a 51-year-old male complaining of shortness of breath and low oxygen saturation, when I checked my pulse ox it was below 90 today. Patient states that he tested positive for Covid this past Friday, had been having URI symptoms such as cough nasal congestion body aches fever over the past 5 days. Patient denies any chest pain, abdominal pain, nausea, vomiting or diarrhea. Related Data Home Medications Medication Instructions Recorded Confirmed esomeprazole magnesium [Nexium] 40 mg PO DAILY 06/11/21 06/21/21 Allergies Allergy/AdvReac Type Severity Reaction Status Date / Time No Known Allergies Allergy Verified 06/21/21 07:43 Review of Systems Review of Systems: All systems reviewed & are unremarkable except as noted in HPI and below Constitutional: Constitutional: Denies excessive sweating, Denies fatigue, Denies headache(s), Denies lethargy, Denies malaise, Denies weakness and Denies weight loss Eyes: Eyes: Denies blurry vision, Denies change in vision and Denies loss of vision ENT: Denies dizziness, Denies ear discharge, Denies headache(s), Denies lip swelling, Denies epistaxis, Denies nasal congestion, Denies neck pain, Denies throat swelling and Denies tongue swelling Cardiovascular: Cardiovascular: Denies chest pain, Denies chest pain at rest, Denies chest pain with activity, Denies diaphoresis, Denies rapid heart rate, Denies edema, Denies irregular heart rhythm, Denies lightheadedness and Denies palpitations Respiratory: Respiratory: Denies chest congestion and Denies hemoptysis Gastrointestinal: Gastrointestinal: Denies abdominal pain, Denies melena, Denies hematochezia, Denies diarrhea, Denies nausea, Denies vomiting and Denies hematemesis Musculoskeletal: Musculoskeletal: Denies abnormal gait, Denies deformity, Denies joint swelling, Denies limited range of motion, Denies neck pain and Denies numbness Neurologic: Denies Abnormal speech present, Denies abnormal gait, Denies confusion, Denies dizziness, Denies headache(s), Denies focal weakness, Denies loss of vision, Denies numbness, Denies Other visual disturbances, Denies Sensory deficit (Neuro) and Denies weakness Psychiatric: Psychiatric: Denies confusion, Denies depression, Denies auditory hallucinations, Denies homicidal ideation and Denies suicidal ideation Endocrine: Endocrine: Denies cold intolerance, Denies excessive sweating, Denies fatigue, Denies heat intolerance and Denies palpitations Hematologic/Lymphatic: Hematologic/Lymphatic: Denies easy bleeding and Denies easy bruising Allergic/Immunologic: Allergic/Immunologic: Denies lip swelling, Denies throat swelling and Denies tongue swelling PMFSH Past Medical History Medical History Anxiety GERD (gastroesophageal reflux disease) History of gangrene (~05/2020) gangrenous cholelithiasis Normal cardiac stress test (~11/2020) Sleep apnea Surgical History Surgical History History of laparoscopic cholecystectomy (~05/15/20) History of umbilical hernia repair (~10/19/20) Hx of appendectomy Hx of repair of right rotator cuff (~2019) Family History Family History Mother Family history of diabetes mellitus in first degree relative Social History Social History Social History: Lives with 2 sons, from . [employer]. Smoking packs per day: 1 Smoking cigarettes per day: 20.0 Years smoked: 34 Smoking pack-years: 34.00 Smoking status: Former smoker Tobacco type: cigars and smokeless tobacco
[2021-08-05 12:45] VITALS: O2SAT 93
[2021-08-05 12:51] LABS: Hematocrit 41.8 % (42.0-52.0); Hemoglobin 14.7 g/dL (14.0-18.0); Immature Granulocyte Absolute 0.01 K/mm3 (0.00-0.031); Immature Granulocyte Percent A 0.2 % (0-0.5); Lymphocytes Absolute Auto 0.77 K/mm3 (0.9-3.2); Lymphocytes Percent Auto 15.7 % (18.3-44.2); Mean Corpuscular HGB Conc 35.2 g/dl (32-36); Mean Corpuscular Hemoglobin 30.4 pg (26-34); Mean Corpuscular Volume 86.4 fl (80-100); Mean Platelet Volume 10.2 fl (7.4-10.4); Monocytes Absolute Auto 0.5 K/mm3 (0.1-0.6); Monocytes Percent Auto 9.6 % (2.6-8.5); Neutrophils Absolute Auto 3.6 K/mm3 (1.3-6.7); Neutrophils Percent Auto 74.5 % (45.5-73.1); Platelet Count Result 207 k/mm3 (150-375); Red Blood Count 4.84 M/mm3 (4.6-6.20); Red Cell Distribution Width 12.5 % (11.5-14.5); White Blood Count 4.9 K/mm3 (4.5-10.0)
[2021-08-05 12:57] VITALS: PULSE 92
[2021-08-05] MEDS: ALBUTEROL SULFATE NEB 2.5 MG/0.5 ML INH 5 MG INHALATION (12:57)
[2021-08-05] MEDS: IPRATROPIUM BR 0.02% INH SOLN 0.5 MG/2.5 ML VIAL INHALATION (12:57)
[2021-08-05 13:05] LABS: Alanine Aminotransferase 43 U/L (4-50); Albumin Level 4.4 g/dL (3.5-5.1); Alkaline Phosphatase 93 U/L (38-126); Anion Gap 10 mmol/L (8-16); Aspartate Amino Transferase 44 U/L (17-59); Bilirubin,Total 0.4 mg/dL (0.2-1.3); Blood Urea Nitrogen 15 mg/dL (9-20); Calcium 8.6 mg/dL (8.4-10.2); Carbon Dioxide 21 mmol/L (22-30); Chloride 101 mmol/L (98-107); Estimated CRCL calculation 115 ml/min; Estimated Glomerular Filt Rate > 60; Glucose 118 mg/dL (65-110); Potassium 3.8 mmol/L (3.4-5.0); Sodium 132 mmol/L (137-145)
[2021-08-05 13:10] LABS: D Dimer 0.73 ug/mL (<0.48)
[2021-08-05 13:34] LABS: NT Pro B Type Natriuretic Pept 31 pg/mL (5-100); Troponin I < 0.012 ng/mL (0.000-0.034)
[2021-08-05] MEDS: DEXAMETHASONE SOD PHOS INJ 4 MG/ML VIAL 10 MG IV PUSH (13:36)
[2021-08-05 13:41] VITALS: BP 144/89; PULSE 96; RESP 25; O2SAT 94
[2021-08-05 15:56] VITALS: BP 103/69; PULSE 93; RESP 24; O2SAT 94
== END 2021-08-05 16:31 | disposition home or self-care (01) ==
PROVIDERS: Emergency Provider Emergency Medicine; PCP Family Medicine
DX: U07.1 COVID-19 (principal); J12.82 Pneumonia due to coronavirus disease 2019; K21.9 Gastro-esophageal reflux disease without esophagitis; G47.30 Sleep apnea, unspecified; Z87.891 Personal history of nicotine dependence; R94.31 Abnormal electrocardiogram [ECG] [EKG]
CPT/HCPCS: 36415; 71045; 71275; 80053; 83880; 84484; 85025; 85380; 93005; 94640; 96374; 99284; J1100; Q9967

== ENCOUNTER 2021-08-08 11:12 | Observation (INO) | payer OTHER, SELFPAY ==
[2021-08-08] VITALS (54 sets, daily range): BP systolic 99–148; BP diastolic 62–97; PULSE 59–85; RESP 7–44; TEMP 36–36.5; O2SAT 91–100; BMI 28.5
--- NOTE | ~2021-08-08 | XR_ITS ---
EXAMINATION: XR chest 1V portable EXAM DATE: 08/08/2021 11:56 INDICATION: covid+/increasing dyspnea TECHNIQUE: Portable AP frontal chest x-ray was obtained. Comparison is made to prior examination from 08/05/2021. FINDINGS: Moderate amount of bilateral ill-defined airspace disease, mild interval progression compar ed to 08/05. Appearance is consistent with COVID pneumonia. Upper lung zones are clear. Cardiomediast inal silhouette is normal. There is no pneumothorax suspected. There are no pleural effusions. Right humeral head rotator cuff repair anchors. IMPRESSION: Mild progression in moderate amount of bilateral pneumonia. Reviewed, dictated and finalized at location A. T COORDINATOR
--- NOTE | 2021-08-08 11:37 | ECG_ITS ---
Measurements Intervals [place] Rate: 80 P: 20 NH: 170 QRS: 28 QRSD: 90 T: 1 QT: 387 QTc: 448 Interpretive Statements SINUS RHYTHM NONSPECIFIC T-WAVE ABNORMALITY- ANT/INF LEADS BASELINE ARTIFACT- I, II, AVR, V4 BORDERLINE ECG Electronically Signed On 08-08-2021 13:37:21 TRAUMA DOCTOR by Kyle Chávez D.O.
--- NOTE | 2021-08-08 11:46 | ED.SOB ---
HPI - SOB/Dyspnea General Chief Complaint: Shortness of Breath/Dyspnea Stated Complaint: COVID + SOB Time Seen by Provider: 08/08/21 11:45 Source: patient Mode of arrival: ambulatory Limitations: no limitations History of Present Illness HPI Narrative: Patient is a 51-year-old complaining of shortness of breath, low oxygen saturation at home 80s . Patient was diagnosed with Covid last week, was seen here 2 days ago for the same complaints and was advised to return to the emergency room if his oxygen level goes down below 90. Patient denies any chest pain, abdominal pain, nausea, vomiting, diaphoresis, fever or chills. Related Data Home Medications Medication Instructions Recorded Confirmed esomeprazole magnesium [Nexium] 40 mg PO DAILY 06/11/21 06/21/21 Allergies Allergy/AdvReac Type Severity Reaction Status Date / Time No Known Allergies Allergy Verified 06/21/21 07:43 Review of Systems Review of Systems: All systems reviewed & are unremarkable except as noted in HPI and below Constitutional: Constitutional: Denies body ache(s), Denies excessive sweating, Denies fatigue, Denies headache(s), Denies lethargy, Denies malaise, Denies weakness and Denies weight loss Eyes: Eyes: Denies blurry vision, Denies change in vision and Denies loss of vision ENT: Denies dizziness, Denies ear discharge, Denies headache(s), Denies lip swelling, Denies epistaxis, Denies nasal congestion, Denies neck pain, Denies throat swelling and Denies tongue swelling Cardiovascular: Cardiovascular: Denies chest pain, Denies chest pain at rest, Denies chest pain with activity, Denies diaphoresis, Denies rapid heart rate, Denies edema, Denies irregular heart rhythm, Denies lightheadedness and Denies palpitations Respiratory: Respiratory: Denies chest congestion and Denies hemoptysis Gastrointestinal: Gastrointestinal: Denies abdominal pain, Denies melena, Denies hematochezia, Denies diarrhea, Denies nausea, Denies vomiting and Denies hematemesis Musculoskeletal: Musculoskeletal: Denies abnormal gait, Denies deformity, Denies joint swelling, Denies limited range of motion, Denies neck pain and Denies numbness Neurologic: Denies Abnormal speech present, Denies abnormal gait, Denies confusion, Denies dizziness, Denies headache(s), Denies focal weakness, Denies loss of vision, Denies numbness, Denies Other visual disturbances, Denies Sensory deficit (Neuro) and Denies weakness Psychiatric: Psychiatric: Denies confusion, Denies depression, Denies auditory hallucinations, Denies homicidal ideation and Denies suicidal ideation Endocrine: Endocrine: Denies cold intolerance, Denies excessive sweating, Denies fatigue, Denies heat intolerance and Denies palpitations Hematologic/Lymphatic: Hematologic/Lymphatic: Denies easy bleeding and Denies easy bruising Allergic/Immunologic: Allergic/Immunologic: Denies lip swelling, Denies throat swelling and Denies tongue swelling PMFSH Past Medical History Medical History Anxiety GERD (gastroesophageal reflux disease) History of gangrene (~05/2020) gangrenous cholelithiasis Normal cardiac stress test (~11/2020) Sleep apnea Surgical History Surgical History History of laparoscopic cholecystectomy (~05/15/20) History of umbilical hernia repair (~10/19/20) Hx of appendectomy Hx of repair of right rotator cuff (~2019) Family History Family History Mother Family history of diabetes mellitus in first degree relative Social History Social History Social History: Lives with 2 sons, from . [employer]. Smoking packs per day: 1 Smoking cigarettes per day: 20.0 Years smoked: 34 Smoking pack-years: 34.00 Smoking status: Former smoker Tobacco type: cigars and smokeless t
[2021-08-08 11:57] LABS: Eosinophils Percent Auto 0.1 % (0-4.4); Hematocrit 40.9 % (42.0-52.0); Immature Granulocyte Absolute 0.05 K/mm3 (0.00-0.031); Immature Granulocyte Percent A 0.4 % (0-0.5); Lymphocytes Absolute Auto 1.03 K/mm3 (0.9-3.2); Lymphocytes Percent Auto 9.1 % (18.3-44.2); Mean Corpuscular HGB Conc 34.2 g/dl (32-36); Mean Corpuscular Hemoglobin 30.2 pg (26-34); Mean Corpuscular Volume 88.3 fl (80-100); Mean Platelet Volume 9.4 fl (7.4-10.4); Monocytes Absolute Auto 1.3 K/mm3 (0.1-0.6); Monocytes Percent Auto 11.8 % (2.6-8.5); Neutrophils Absolute Auto 8.9 K/mm3 (1.3-6.7); Neutrophils Percent Auto 78.6 % (45.5-73.1); Platelet Count Result 295 k/mm3 (150-375); Red Blood Count 4.63 M/mm3 (4.6-6.20); Red Cell Distribution Width 12.9 % (11.5-14.5); White Blood Count 11.3 K/mm3 (4.5-10.0)
[2021-08-08 12:10] LABS: Alanine Aminotransferase 58 U/L (4-50); Albumin Level 4.3 g/dL (3.5-5.1); Alkaline Phosphatase 94 U/L (38-126); Anion Gap 11 mmol/L (8-16); Aspartate Amino Transferase 34 U/L (17-59); Bilirubin,Total 0.6 mg/dL (0.2-1.3); Blood Urea Nitrogen 17 mg/dL (9-20); Calcium 8.6 mg/dL (8.4-10.2); Carbon Dioxide 25 mmol/L (22-30); Chloride 101 mmol/L (98-107); Estimated CRCL calculation 102 ml/min; Estimated Glomerular Filt Rate > 60; Glucose 108 mg/dL (65-110); Potassium 3.5 mmol/L (3.4-5.0); Sodium 137 mmol/L (137-145)
[2021-08-08 12:21] LABS: Base Excess ABG 2.1 mEq/l (+/-2.0); Carboxyhemoglobin 0.5 % THb (0-2.0); Fractional Inspired Oxygen 21 %; HCO3 ABG 26.2 mEq/l (22.0-26.0); Methemoglobin ABG 0.3 %THb (0-1.5); Oxygen Content ABG 18.3 %vol (16.0-22.0); Oxygen Saturation ABG 93.4 % (95.0-100.0); Oxyhemoglobin 91.5 % THb (90.0-100.0); PCO2 ABG 39.4 mmHg (35.0-45.0); PO2 ABG 64.6 mmHg (80.0-100.0); PO2 FiO2 Ratio Arterial Blood 3.08 %; Reduced Hemoglobin 7.7 %THb (0-5.0); Total Hemoglobin 14.2 g/dL (12.0-18.0); pH ABG 7.441 (7.350-7.450)
[2021-08-08 12:23] LABS: Device ROOM AIR; Site Drawn LEFT RADIAL
[2021-08-08] MEDS: DEXAMETHASONE SOD PHOS INJ 4 MG/ML VIAL 10 MG IV PUSH (12:41)
[2021-08-08 13:49] LABS: EDCOVIDSCREEN Positive (Negative)
[2021-08-08 13:49] LABS: INR 0.9; Prothrombin Time 12.3 Seconds (11.1-14.7)
[2021-08-08 13:55] LABS: Alanine Aminotransferase 58 U/L (4-50); Estimated CRCL calculation 92 ml/min; Estimated Glomerular Filt Rate > 60
[2021-08-08] MEDS: REMDESIVIR 200 MG/NS 250 ML 200 MG/250 ML BAG 250 MG IVPB (14:40)
[2021-08-08] MEDS: ALBUTEROL SULFATE NEB 2.5 MG/0.5 ML INH 5 MG INHALATION ×2 (16:25→22:20)
[2021-08-08] MEDS: IPRATROPIUM BR 0.02% INH SOLN 0.5 MG/2.5 ML VIAL INHALATION ×2 (16:25→22:20)
--- NOTE | 2021-08-08 16:45 | PM.IMHP ---
H&P: HPI History of Present Illness Date/Time: 08/08/21 16:45 Chief Complaint: Low oxygen saturations. Narrative: This is a pleasant 51-year-old male with hyperlipidemia and GERD who presented to the emergency department earlier today from home for evaluation after he noticed that his SpO2 was dropping into the 80s. He has not been feeling well for approximately 7 to 10 days with symptoms to include nasal congestion, body aches, decreased smell and taste, decreased appetite, nonproductive cough, and diarrhea. He tested positive for COVID last Friday and he has been resting at home, taking [id number] medications if needed and he was also prescribed a Medrol Dosepak. He has been monitoring his SpO2 at home and notes that it was dropping into the 80s with ambulation and thus he came in for evaluation. Chest x-ray showed mild progression in moderate amount of bilateral pneumonia and given intermittent hypoxia he is being admitted. At the time my evaluation he is resting comfortably and he has no specific complaints. He denies headache, neck ache, sore throat, chest pain, pleuritic pains, nausea, and vomiting. He was not vaccinated for COVID. Review of Systems Review of Systems: Twelve systems were reviewed and are negative except for as per HPI. [facility] Past Medical History Medical History (Updated 08/09/21 @ 00:43 by Anita Meza PA-C) Anxiety Gastroesophageal reflux disease Hypercholesterolemia Normal cardiac stress test (11/2020) Sleep apnea Mild sleep apnea on sleep study done several years ago. He does not use a CPAP. Surgical History Surgical History (Updated 08/08/21 @ 17:07 by Anita Meza PA-C) History of appendectomy History of laparoscopic cholecystectomy (05/15/20) For acute gangrenous cholecystitis. History of repair of right rotator cuff History of sinus surgery (06/15/21) Right maxillary antrostomy with tissue removal for large obstructing mucous retention cyst in septoplasty turbinate reduction. History of umbilical hernia repair (10/19/20) Family History Family History Mother Family history of diabetes mellitus in first degree relative Social History Social History (Updated 08/09/21 @ 00:41 by Anita G. Gerling, PA-C) Social History: The patient lives in [place] with his and 2 sons. 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 He smoked a pack of cigarettes a day for 34 years and he quit in March 2021. No alcohol or illicit substance abuse. He designates his as his surrogate decision maker and he wishes to be a full code. Meds Home Medications and Allergies Home Medications Medication Instructions Recorded Confirmed Type nebulizer and compressor #1 ea 08/07/21 Rx albuterol sulfate 2.5 mg INHALATION Q6H PRN 08/08/21 08/08/21 History atorvastatin 40 mg PO HS 08/08/21 08/08/21 History Allergies Allergy/AdvReac Type Severity Reaction Status Date / Time No Known Allergies Allergy Verified 08/08/21 17:23 Vital Signs Vital Signs - 24 hr 08/08/21 11:19 08/08/21 11:36 08/08/21 11:37 Temperature 96.8 F L Pulse Rate 85 71 72 Respiratory Rate 16 38 H 33 H Blood Pressure 110/85 128/83 128/83 Pulse Oximetry 94 92 95 08/08/21 11:45 08/08/21 11:46 08/08/21 12:00 Temperature Pulse Rate 74 74 75 Respiratory Rate 39 H 35 H 28 H Blood Pressure 124/77 Pulse Oximetry 95 95 95 08/08/21 12:01 08/08/21 12:15 08/08/21 12:16 Temperature Pulse Rate 70 73 82 Respiratory Rate 29 H 44 H 24 H Blood Pressure 123/79 129/88 Pulse Oximetry 95 95 96 08/08/21 12:30 08/08/21 12:31 08/08/21 12:32 Temperature Pulse Rate 74 77 80 Respiratory Rate 33 H 31 H 28 H Blood Pressure 140/82 Pulse Oximetry 91 93 92 08/08/21 12:45 08/08/21 12:46 08/08/21 13:00 Temperature Pulse Rate 70 74 70 Respiratory Rate 33 H 26 H 29 H Blood Pressure 142/89 H Pulse Oximetry 94 93 95 08/08/21 13:01 08/08/21 1
--- NOTE | 2021-08-08 17:20 | ADMGEN ---
This patient, Nathan Avila, was admitted to [facility] Surg Room 332-02. Patient/family oriented to hospital policies and general routines including ID bracelet, bed and alarms, visiting hours, pain management, procedures, bathroom and other care routines, personal items, smoking policy, room service/diet, and visiting hours. Information on how to activate the Rapid Response Team has been discussed. Patient/Family are encouraged to report perceived risks to care and to ask questions if they do not understand what they are told or what they should do.
[2021-08-08 17:56] LABS: D Dimer 0.76 ug/mL (<0.48)
[2021-08-08 18:03] LABS: CRP 3.7 mg/dL (<1.0); Lactate Dehydrogenase 705 U/L (313-618)
[2021-08-08] MEDS: LACTATED RINGERS 1,000 ML 125 ML IV CONT (18:15)
[2021-08-09] VITALS (13 sets, daily range): BP systolic 110–123; BP diastolic 68–79; PULSE 60–92; RESP 17–20; TEMP 36.3–36.8; O2SAT 92–96
[2021-08-09] MEDS: IPRATROPIUM BR 0.02% INH SOLN 0.5 MG/2.5 ML VIAL INHALATION ×4 (03:15→22:13)
[2021-08-09] MEDS: ATORVASTATIN 40 MG TABLET PO ×2 (07:35→22:03)
[2021-08-09 08:44] LABS: Hematocrit 39.1 % (42.0-52.0); Hemoglobin 13.2 g/dL (14.0-18.0); Mean Corpuscular HGB Conc 33.8 g/dl (32-36); Mean Corpuscular Hemoglobin 30.1 pg (26-34); Mean Corpuscular Volume 89.3 fl (80-100); Mean Platelet Volume 9.6 fl (7.4-10.4); Platelet Count Result 324 k/mm3 (150-375); Red Blood Count 4.38 M/mm3 (4.6-6.20); Red Cell Distribution Width 12.9 % (11.5-14.5); White Blood Count 7.1 K/mm3 (4.5-10.0)
[2021-08-09 08:47] LABS: INR 1.1; Prothrombin Time 13.8 Seconds (11.1-14.7)
[2021-08-09 08:49] LABS: Alanine Aminotransferase 49 U/L (4-50); Albumin Level 3.7 g/dL (3.5-5.1); Alkaline Phosphatase 82 U/L (38-126); Anion Gap 9 mmol/L (8-16); Aspartate Amino Transferase 22 U/L (17-59); Bilirubin,Total 0.4 mg/dL (0.2-1.3); Blood Urea Nitrogen 15 mg/dL (9-20); Calcium 8.5 mg/dL (8.4-10.2); Carbon Dioxide 27 mmol/L (22-30); Chloride 103 mmol/L (98-107); Estimated CRCL calculation 102 ml/min; Estimated Glomerular Filt Rate > 60; Glucose 118 mg/dL (65-110); Magnesium 2.3 mg/dL (1.6-2.3); Potassium 3.5 mmol/L (3.4-5.0); Sodium 139 mmol/L (137-145)
[2021-08-09] MEDS: ENOXAPARIN 40 MG/0.4 ML SYRINGE SUB-Q (08:51)
[2021-08-09 09:20] LABS: Alanine Aminotransferase 48 U/L (4-50); Estimated CRCL calculation 102 ml/min; Estimated Glomerular Filt Rate > 60
[2021-08-09] MEDS: REMDESIVIR 100 MG/NS 250 ML 100 MG/250 ML BAG 250 MG IVPB (10:03)
--- NOTE | 2021-08-09 13:00 | PM.IMPN ---
Progress Note: A&P Assessment and Plan (1) Pneumonia due to COVID-19 virus: Code(s): U07.1 - COVID-19; J12.82 - Pneumonia due to coronavirus disease 2019 Status: Acute Assessment and Plan: With intermittent oxygen requirements with exertion and elevated inflammatory markers, is started on Decadron and remdesivir. Continue supportive care including oxygen as needed. Currently on room air Continue to monitor inflammatory marker and continue Decadron and remdesivir this point CTA is negative for PE (2) Leukocytosis: Code(s): D72.829 - Elevated white blood cell count, unspecified Status: Acute Assessment and Plan: This has resolved. Due to steroid use procalcitonin is pending. Additional Plan DVT prophylaxis Lovenox Subjective Date/time seen: 08/09/21 13:00 Interval history: HPI:This is a pleasant 51-year-old male with hyperlipidemia and GERD who presented to the emergency department earlier today from home for evaluation after he noticed that his SpO2 was dropping into the 80s. He has not been feeling well for approximately 7 to 10 days with symptoms to include nasal congestion, body aches, decreased smell and taste, decreased appetite, nonproductive cough, and diarrhea. He tested positive for COVID last 01/2021 and he has been resting at home, taking [id number] medications if needed and he was also prescribed a Medrol Dosepak. He has been monitoring his SpO2 at home and notes that it was dropping into the 80s with ambulation and thus he came in for evaluation. Chest x-ray showed mild progression in moderate amount of bilateral pneumonia and given intermittent hypoxia he is being admitted. At the time my evaluation he is resting comfortably and he has no specific complaints. He denies headache, neck ache, sore throat, chest pain, pleuritic pains, nausea, and vomiting. He was not vaccinated for COVID. 08/09/2021 no overnight events remains afebrile reports some shortness of breath with exertion wants probiotic for his diarrhea Review of Systems Review of Systems: All systems reviewed & are unremarkable except as noted in HPI and below (HPI) Exam Narrative: General: Mildly ill-appearing male sitting up in bed. Her in acute distress. HEENT: PERRL, EOMI. Sclerae anicteric. Tacky mucous membranes. Neck: Supple. No adenopathy or JVD. Respiratory: Speaking in full sentences. Frequent episodes of coughing. Coarse crackles at the bases. Cardiovascular: Regular rate and rhythm with S1-S2. Gastrointestinal: Abdomen is soft, nontender, and nondistended with positive bowel sounds. Skin: Warm and dry. No rash or lesions on limited exam. Extremities: No cyanosis, clubbing, or edema. Radial and pedal pulses intact. Neurological: Alert. Cranial nerves 2-12 are grossly intact. No gross focal deficits to casual conversation. Psychiatric: Pleasant and cooperative with normal mood and affect. Judgment and insight intact. Objective Data Vital Signs Vital Signs: Vital Signs - 24 hr 08/08/21 13:01 08/08/21 13:15 08/08/21 13:16 Temperature Pulse Rate 67 72 72 Respiratory Rate 28 H 30 H 29 H Blood Pressure 148/97 H 146/88 H Pulse Oximetry 94 95 95 08/08/21 13:17 08/08/21 13:21 08/08/21 13:30 Temperature Pulse Rate 81 66 75 Respiratory Rate 24 H 30 H 25 H Blood Pressure 146/88 H Pulse Oximetry 97 95 94 08/08/21 13:31 08/08/21 13:45 08/08/21 13:46 Temperature Pulse Rate 66 69 66 Respiratory Rate 21 H 29 H 30 H Blood Pressure 118/77 121/79 Pulse Oximetry 94 95 96 08/08/21 14:00 08/08/21 14:01 08/08/21 14:15 Temperature Pulse Rate 73 65 72 Respiratory Rate 29 H 33 H 29 H Blood Pressure 127/80 Pulse Oximetry 94 95 95 08/08/21 14:16 08/08/21 14:17 08/08/21 14:30 Temperature Pulse Rate 71 63 81 Respiratory Rate 28 H 31 H 29 H Blood Pressure 119/80 Pulse Oximetry 95 96 95 08/08/21 14:31 08/08/21 14:45 08/08/21 15:00 Temperature
[2021-08-10] MEDS: IPRATROPIUM BR 0.02% INH SOLN 0.5 MG/2.5 ML VIAL INHALATION (01:17)
[2021-08-10 01:18] VITALS: PULSE 85; RESP 17
[2021-08-10 01:27] VITALS: PULSE 90; RESP 21
[2021-08-10 06:00] VITALS: BP 111/65; PULSE 69; RESP 18; TEMP 37.4; O2SAT 92
[2021-08-10 06:58] LABS: Basophils Percent Auto 0.1 % (0.2-1.2); Eosinophils Absolute Auto 0.1 K/mm3 (0-0.3); Eosinophils Percent Auto 1.1 % (0-4.4); Hematocrit 38.2 % (42.0-52.0); Hemoglobin 13.3 g/dL (14.0-18.0); Immature Granulocyte Absolute 0.07 K/mm3 (0.00-0.031); Immature Granulocyte Percent A 0.7 % (0-0.5); Lymphocytes Absolute Auto 1.38 K/mm3 (0.9-3.2); Mean Corpuscular HGB Conc 34.8 g/dl (32-36); Mean Corpuscular Hemoglobin 30.5 pg (26-34); Mean Corpuscular Volume 87.6 fl (80-100); Mean Platelet Volume 9.3 fl (7.4-10.4); Monocytes Absolute Auto 1.1 K/mm3 (0.1-0.6); Monocytes Percent Auto 10.2 % (2.6-8.5); Neutrophils Absolute Auto 7.9 K/mm3 (1.3-6.7); Neutrophils Percent Auto 74.9 % (45.5-73.1); Platelet Count Result 354 k/mm3 (150-375); Red Blood Count 4.36 M/mm3 (4.6-6.20); Red Cell Distribution Width 12.7 % (11.5-14.5); White Blood Count 10.6 K/mm3 (4.5-10.0)
[2021-08-10 07:08] LABS: Prothrombin Time 13.4 Seconds (11.1-14.7)
[2021-08-10 07:14] LABS: D Dimer 0.66 ug/mL (<0.48)
[2021-08-10 07:21] LABS: Alanine Aminotransferase 63 U/L (4-50); Anion Gap 9 mmol/L (8-16); Blood Urea Nitrogen 16 mg/dL (9-20); CRP 2.7 mg/dL (<1.0); Calcium 8.4 mg/dL (8.4-10.2); Carbon Dioxide 25 mmol/L (22-30); Chloride 104 mmol/L (98-107); Estimated CRCL calculation 102 ml/min; Estimated Glomerular Filt Rate > 60; Glucose 101 mg/dL (65-110); Lactate Dehydrogenase 534 U/L (313-618); Potassium 3.6 mmol/L (3.4-5.0); Sodium 138 mmol/L (137-145)
[2021-08-10] MEDS: ENOXAPARIN 40 MG/0.4 ML SYRINGE SUB-Q (08:45)
--- NOTE | 2021-08-10 10:00 | PM.DS ---
DS: Admitting Diagnosis Discharge Date Date of Service 08/10/21 1000 Admitting Diagnosis COVID PNA DS: Discharge Diagnosis Discharge Diagnosis (1) Pneumonia due to COVID-19 virus: Code(s): U07.1 - COVID-19; J12.82 - Pneumonia due to coronavirus disease 2019 Status: Acute Assessment and Plan: With intermittent oxygen requirements with exertion and elevated inflammatory markers, is started on Decadron and remdesivir. Continue supportive care including oxygen as needed. Currently on room air Continue to monitor inflammatory marker and continue Decadron and remdesivir this point CTA is negative for PE (2) Leukocytosis: Code(s): D72.829 - Elevated white blood cell count, unspecified Status: Acute Assessment and Plan: This has resolved. Due to steroid use procalcitonin is pending. DS: Summary Hospital Course Hospital Course: Patient is 51 year old with a past medical HLD who presented to the ED for evaluation of low O2 saturations. He tested positive for covid on 07/16/21 and has been having the symptoms that accompany COVID for the prior 7 days. He has been treated with IV remdesivir and Decadron. It was also noted the patient had elevated white blood cells which was as high as 11. Patient has not needed any O2. Patient was walked around the halls and his saturation never dropped below 95%. Patient is ready to go home and feels great. Today patient denies chest pain, shortness of breath, nausea, vomiting, diarrhea, constipation, sweats fevers, chills. Patient is concerned about going home around his kids becuase his kid's pulper is recommending him have a negative COVID test prior to being around the kids. Status at Discharge Functional status at discharge: independent ambulation Overall status at discharge: patient is progressing back to baseline Time Spent with Patient Time attestation: Total time spent providing and/or coordinating discharge services: 42 minutes Time spent: Greater than 30 minutes Exam Const: General: cooperative, healthy appearing, comfortable, no acute distress, well developed, alert, awake and Physically active Nutritional Appearance: well nourished Orientation/consciousness: oriented to person, oriented to place, oriented to time and patient oriented x3 Limitations: no limitations HENMT: Head: normal to inspection Ears: hearing grossly normal bilaterally General nose exam: Normal external nose present Mouth: Yes Normal oral and palatal mucosa present, Yes lip normal and Yes tongue normal Teeth and gingiva: abnormal tooth and associated gingiva and poor dentition Eyes: General: appearance normal, both eyes and all related structures Neck: Neck: normal visual inspection, full ROM, trachea midline and supple Chest: Chest palpation & inspection: normal inspection of the chest Resp: Effort & Inspection: normal respiratory effort and able to speak in complete sentences Auscultation: clear to auscultation bilaterally Cardio: Jugular venous distension: no JVD Rate: regular rate Rhythm: regular rhythm Heart sounds: S1 normal heart sound present and S2 normal heart sound present Peripheral pulses: Peripheral pulses 2+ throughout GI: Inspection: normal to inspection GI Palp: Yes Soft to palpation and No Tenderness to palpation present (GI) Auscultation: normal bowel sounds Skin: General skin exam: normal color and no rashes or lesions noted Lesions: no lesions Rashes: no rashes Trauma: no lacerations or abrasions Wounds: no wounds Hair: normal Nails: normal Neuro: General: patient oriented x3, moves all extremities and Normal light touch and pain sensation Speech: normal speech Gait exam (Neuro): Normal gait present Extrem: General: normal to inspection Right upper extremity: normal to inspection Left upper extremity: normal to inspection Right lower extremity: normal to inspection Left lower extremity: normal to inspection Psych: Appearance: ella
[2021-08-10] MEDS: REMDESIVIR 100 MG/NS 250 ML 100 MG/250 ML BAG 250 MG IVPB (10:38)
--- NOTE | 2021-08-10 11:06 | PCRCNOTE ---
Window of time for administration has passed. See next scheduled administration.
== END 2021-08-10 13:30 | disposition home or self-care (01) ==
LOC: ANHED 13:25 → ANH3MEDSUR 16:03
PROVIDERS: Physician Assistant; Admitting Provider Internal Medicine; Emergency Provider Emergency Medicine; PCP Family Medicine; Visit Provider Internal Medicine
DX: U07.1 COVID-19 (principal); J12.82 Pneumonia due to coronavirus disease 2019; R09.02 Hypoxemia; Z23 Encounter for immunization; K21.9 Gastro-esophageal reflux disease without esophagitis; G47.30 Sleep apnea, unspecified; F41.9 Anxiety disorder, unspecified
CPT/HCPCS: 36415; 36600; 71045; 80048; 80053; 82375; 82565; 82728; 82805; 83050; 83615; 83735; 84145; 84460; 85025; 85027; 85380; 85610; 86140; 87426; 90471; 90653; 93005; 94640; 96365; 96367; 96372; 96374; 96375; 99285; A9270; C9803; G0008; G0378; J0456; J0696; J1100; J1650; J7120